=== PATIENT | female | born 1945 | race Caucasian/White ===

== ENCOUNTER 2018-07-15 08:55 | Outpatient (RCR) | payer MEDICARE, SELFPAY ==
[2017-04-30 15:53] VITALS: BMI 22.9
--- NOTE | 2018-07-15 10:15 | BH.SGPN.GN ---
Behaviors/Verbalizations/Mental Status: []Pt eye contact good, casually dressed, motor activity appropriate, speech rambling, mood euthymic, full affect, thoughts racing and circular, no evidence of delusions or hallucinations. Client Response/Progress/Benefit: []Client listened attentively to peers and contributed thoughts and ideas to discussion throughout. Client struggled with staying on topic at times and needed several redirections from therapist. Client reported change happens everyday and she tries to manage change by facing it head on. Client agreed with peers that change can be hard, but recognizes if doesn't face change nothing will get better. Client connected with the various emotions discussed that can impact change process. Client seemed to benefit from increased awareness of barriers that can get in the way of making a personal change and benefits of making change. Client's first day in IOP. Narrative Note: []
--- NOTE | 2018-07-15 11:18 | BH.SGPN.GN ---
Behaviors/Verbalizations/Mental Status: []Client alert and oriented, casually dressed and groomed. Eye contact good. Motor activity appropriate. Speech tangential, rambling. Affect full-laughing and smiling, mood euthymic. Loose associations, and often repeating herself. no signs of hallucinations or delusions. Client Response/Progress/Benefit: []Client responded somewhat well to session, providing some good ideas, but often off topic and interrupting others. Client participated in the activity and helped the group process challenges associated with making change. Client became frustrated with herself during the activity, but the group helped client challenge negative self-talk. Client shared it is possible to grow and learn from change. Client reported when she is struggling with change ?I just get up an do it anyway.? Client appeared confused by the stages of change and had a difficult time setting a goal for a change she would like to make this week. Client was able to identify being outside and doing yard work as a change that could improve her mental health. Client appeared to benefit from identifying a change that would improve her mental health. Client attempted to provide support to others, but at times she struggled with boundaries and used minimizing language. Client?s first day in IOP. IOP staff will continue to follow up with client to review group rules. Client to continue to prevent decompensation and reduce severity of symptoms.
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
--- NOTE | 2018-07-17 09:10 | BH.SGPN.GN ---
Behaviors/Verbalizations/Mental Status: [] Eye contact is good. Motor activity is appropriate. Appearance is disheveled. Speech is Appropriate. Mood is euthymic. Affect is full. Thoughts are linear however requires redirection to stay on topic. Often interrupts other patients. Limited social awareness. No evidence of psychosis. Reviewed daily check in sheet and no reports of suicidal ideations or intent. Client Response/Progress/Benefit: [] Pt was an active participant in group. Requires redirection to stay on topic. Inappropriate at times often getting up and asking for hugs from peers. Shared that she continues to have conflict with family specifically daughter which has impacted her relationship with great grandson. Limited motivation to repair relationship with daughter. Reports anxiety and depression however little insight or awareness of its impact. States that her anxiety is bad however then reports being Calm and at peace with not being able to see her grandson. Limited benefit from group except for social aspect. Some concerns about her cognition as she will often repeat stories and has difficulty remembering redirection. Will discuss with team and psychiatrist tomorrow regarding her appropriate for IOP level of care. Narrative Note: []
--- NOTE | 2018-07-17 10:11 | BH.SGPN.GN ---
Behaviors/Verbalizations/Mental Status: [Client alert, casually dressed, hygiene good. Eye contact fair to good. Motor activity restless - often fidgeting in chair or messing with items on the table. Speech is an appropriate rate and tone; however, often tangential. Affect congruent, mood euthymic, anxious. Thoughts linear, logical, no signs of hallucinations or delusions.] Client Response/Progress/Benefit: [Pt receptive to session, active participant and providing input throughout; however, often interrupting others or giving off-topic responses. At times pt remarks became disruptive to the group or detracted from group due to inappropriateness of content. Pt connected with discussion on communication and expressed ?if we don?t communicate emotions it build up and the we have to suffer the consequences?. Despite this insight, pt continued to provide remarks promoting aggressive communication and provided examples of times she felt she needed to resort to aggressive communication in order to get her point across. She was somewhat receptive of being gently challenged on this and would benefit from ongoing psychoeducation regarding appropriate communication skills. Pt made efforts to help the group discuss the different communication styles and did well to respond to continued redirection given her tendency to provide off topic remarks. Pt appeared to benefit from increasing awareness of different types of communication as well as from the supportive group environment. Minimal progress noted due to her inability to engage in session without becoming distracted or struggling to remain on topic. Given difficulties to appropriately engage in group or retain materials, pt does not appear appropriate for group tx setting and is recommended referral to alternative counseling that may more appropriately address her needs. ] Narrative Note: []
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
--- NOTE | 2018-07-18 10:20 | BH.SGPN.GN ---
Behaviors/Verbalizations/Mental Status: []Pt eye contact good, casually dressed, motor activity appropriate, speech normal rate and tone, rambling at times, mood euthymic, congruent affect, thought process tangential, no evidence of delusions or hallucinations. Client Response/Progress/Benefit: Client contributed many of her thoughts to group discussion, however her contributions were often not connected or were loosely related with the topic. 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 Client reported self-care can be helpful because makes her feel productive. Client engaged in activity, worked cooperatively with group members. Client seemed to benefit from being around others. Client progress could be hindered by client not appearing to understand the concepts being discussed in group. Client does not seem to be appropriate for [facility] level of care, will discuss client's treatment with treatment team. Narrative Note: []
--- NOTE | 2018-07-18 11:40 | BH.NA ---
Physical Data - Vital Signs Pulse Rate: 86 Respiratory Rate: 15 Blood Pressure: 137/72 - Height/Weight Height: 1.59 m Weight:: 59.874 kg Weight in Pounds: 132.0 lbs Current Medication Compliance - Medication Compliance Do you take your medication as prescribed?: Yes Do you need assistance with taking medication?: No Have you had side effects from medication?: No Nutritional History - Appetite Nutritional Instructions:: If client shows signs of a swallowing problem, weight change of 10 pounds or more in the last month, or is on a diabetic diet, the physician will review and request a dietitian consult, as appropriate. All unintentional weight loss will be referred to the physician for decision on need for dietitian consult. Describe your appetite:: Good Have you noticed a change in your eating habits lately?: No Functional Assessment - Sleep Pattern Describe any problems with sleeping: Client notes minor difficulty staying asleep related to environmental noise. - Activities Motor Activity:: Functional Sensory/Communication Assess - Hearing Problems Do you have any hearing problems?: Adequate - Communication Problems Do you have difficulty understanding what people are saying?: No Do you have trouble putting your thoughts into words or expressing what you want to say?: Yes Do people ever have trouble understanding what you say?: No What is your primary language?: [place] Learning Assessment - Learning Barriers Learning Barriers:: Ready to learn Medical Problems/History - Cardiac Conditions Cardiovascular: Hypertension, Hyperlipidemia - Pain Assessment Do you have acute or chronic pain?: No - Female Reproductive Do you think you may be ?: No Have you reached menopause?: Yes Do you have any history of breast disease?: No - Additional History Additional comments:: see PMHx in Summary Substance Abuse - Substance Abuse Please describe substance abuse in the last 30 days:: Denies ETOH, tobacco, and illicit substance use/abuse. Minimal caffiene intake. Mental Status Summary - Mental Status Significant Findings/Observations on Appearance and Mood:: Chapis is 72F who is cooperative with interview and engages easily in conversation. Normal activity, steady gait. She makes good eye contact. She has appropriate grooming and hygiene, casually dressed. Speech is clear and of normal rate and volume. Mild anxiety. Full affect. Client does exhibit both remote and recent memory deficits. Her knowledge and insight about her anxiety and depression are fair to poor. She is A&Ox4, but is easily distracted and difficult to redirect. Suicide Assessment - Suicidal Ideation Are you currently or have you been suicidal in the past?: No Suicidal Intentional Rating Scale (SIRS): No suicidal thoughts (past or present) Physician Notification: If Active suicidal thoughts/Will not contract for safety is checked, contact physician and document in the Physician Notification section below. Fall Risk Assessment - Age Age: 71 or older - Mental Status Mental Status: Willing & able to ask for assistance when needed - Physical Status Physical Status: No problems - Impairments Impairments: None - Elimination Elimination: Continent AND independent - Gait or Balance Gait or Balance: Walks independently - Hx of Falls History of falls in the past 6 months: No known history - Medications/Substances Psychotropics:: Antidepressants, Anxiolytics (e.g. benzodiazepines) Others:: Antihypertensives Medications/substances used within the past 24 hours or ordered to administer: 3 or more of the medications/substances listed above - Total Score Total Points:: 4 Physician Notification - Physician Notification Physician Notified: Bill Butler Method of Notification: Face to Face Comments: treatment planning discussion RN Summary of Impressions - Impressions Recommendations: Include psychiatric and medical issues, treatment planning recommendations, and discharge planning needs. Impressions: Psychiatric Issues: LEATHA, dependent personality Impression: General Medical Conditions: HTN, HLD - Level of Care How do the client's current symptoms and functional deficits support need for this level of care?: Client notes a recent decline in her mental health, mostly surrounding conflicts with two of her adult children. She notes that she has been having emotional dysregulation with labile moods for several months. Client verbalizes that she is often lonely and scared due to living alone. She notes that she has struggled with her mental illness for the last 50 years. IOP will provide her with social support and skill training to promote gains and prevent further decompensation.
--- NOTE | 2018-07-18 13:35 | HP.PCM_ITS ---
History and Physical Date of Admission: 07/15/18 Chief Complaint: The patient is a 72-year old female who is being admitted to the intensive outpatient mental health treatment program at [facility]. She has a long history of problems with anxiety and family turmoil and enmeshment. She also suffers from insomnia. She has a history of benzodiazepine dependence. History of Present Illness: The patient states that she has had problems with anxiety for over 50 years. She has always been a worrier and tends to worry about many different things. Lately, she has been highly worried about problematic family interactions, as well as loneliness. She has been a for 31 years and has few or no social supports. She has no interests or hobbies and is highly focused on spending lots of time with her great grandson. She is constantly wanting to spend time at her daughter's house for hours at a time to the point where her family has found her to be annoying and have told her to leave. She gets into big arguments over this issue with her daughter and granddaughter. This causes her to then feel rejected been more lonely. This makes her highly anxious. Her anxiety sometimes causes her to feel overwhelmed to the point of being panicky. She has a history of insomnia, currently treated with Seroquel nightly. The patient has a history of benzodiazepine dependence. She was on Ativan for many years. When her doctor decided to stop prescribing it, she went through withdrawals and required detoxification at the [facility] 10 years ago. Past Psychiatric History: No psychiatric admissions and no history of suicide attempts. She said that she was first treated for anxiety at age 21. More recently she has been treated by Dr. Barr for a number of years. Current Psychiatric Medications: Paxil 60 mg daily, Klonopin 1 mg twice daily, Seroquel 75 mg nightly Medical History: The patient has hypertension and hyperlipidemia treated with medications. Allergies: No known drug allergies Family Psychiatric History: She said that everybody on her father's side has had problems with anxiety. Personal/Social History: The patient's parents are . A sister of cancer some years ago. She has no other living siblings. She left school in the 11th grade after she became . 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 She has had little active engagement in life since then. She has been living off her 's pension since his 31 years ago. She lives alone. She is and . Her second of cancer at age 44. She has a son from her first marriage who lives out of state. She has estranged herself from her daugher and grandaughter after frequently getting conflict with them. She said I always fight with my daughter and she always says I am in the wrong. Se is able to drive and manage her self-care and finances appropriately. She shows no signs of cognitive decline. However, she is very emotionally immature. Substance abuse history: Patient denies any history of alcohol or drug problems. She developed a dependence on Ativan after being on it for 20years, and required detoxification 10 years ago. Review of Systems: Psychiatry: Some demoralization, but no clinical depression. She is highly anxious under certain circumstances with an underlying generalized anxiety as per HPI. She is not suicidal. There is no psychosis. She is cognitively intact. Constitutional: She is of average weight and her weight has been steady. Her energy level is good. Examination: The patient presents as a very talkative woman of average build who appears emotionally immature. She goes off on long tangents with a tendency to talk endlessly about family problems. She demonstrates poor social skills. Vital signs: Height 5 feet 3 inches, weight 130 pounds, respirations 17. Musculoskeletal: Some minor aches and pains. Her speech is fluent and spontaneous. Her language is intact. Her judgment and insight are poor. He is alert and oriented x3. Her affect is cordial and appropriate. Her recent and remote memory appear to be intact. She demonstrates fair attention span and concentration. She has normal thought processes and abstract reasoning. Her associations are intact. There are no hallucinations or delusions and she is not suicidal. She demonstrates normal age-appropriate fund of knowledge. Mental Status Examination: The patient presents as a very talkative woman of average build who appears emotionally immature. She demonstrates poor social skills. Her thoughts are logical and coherent, however she has a tendency to go off on tangents. There is no significant depression. She is not suicidal. There is no psychosis. She is cognitively intact. Diagnoses: [] [place] I: Generalized anxiety disorder, adjustment disorder with anxiety and depression, history of distress with family, history of benzodiazepine dependence [place] II: Dependent personality traits [place] III: Hypertension, hyperlipidemia Plan: I am continuing treatment with Paxil, Klonopin and Seroquel at the current doses. Patient will continue to have her medicines managed by Dr. Barr. The team will discuss her appropriateness for our program.
--- NOTE | 2018-07-18 14:23 | BH.DR.ITP ---
Initial Treatment Plan - Patient Information Visit Information: ADMISSION DATE: 07/15/18 EXPECTED LOS: 4-6 weeks Diagnoses:: generalized anxiety disorder; relationship distress with family; adjustment disorder - Problems/Symptoms Problem #1:: generalized anxiety Symptom:: tendency to worry excessively; feeling anxious Problem #2:: adjustment disorder Symptom:: lack of coping skills; inability to handle stress Problem #3:: relationship distress with family Symptom:: problems with healthy family dynamics; lacking emotioal intelligence
--- NOTE | 2018-07-22 08:45 | BH.COMM ---
Communication Note - Communication with Client Communication Note: After discussion with treatment team, psychiatrist, and pt's outpatient psychiatrist it was determined that pt is not benefiting for IOP level of care and will be discharged. Spoke with patient over the phone regarding discharge and outpatient recommendations (refer to discharge plan). Pt understood and was pleasant and cooperative. No distress stating It will give me more time to do my projects around the house. Denies any overwhelming depression, anxiety, or suicidal ideations. Smiling.
--- NOTE | 2018-07-22 09:15 | BH.DS ---
Discharge Summary - Demographics Date of Admission:: 07/15/18 Discharge Date: 07/22/18 Presenting Problems at Admission:: Client is a 72-year-old female with a history of panic and generalized anxiety disorder. Client was referred to [facility] by her outpatient psychiatrist Dr. Yeager due to client's report of worsening anxiety and loneliness over the past two weeks. At intake, client reported symptoms of constant anxiety and internal shaking. Client also reported being fearful of many things in life and worry about things other people don't. Client reported loneliness due to limited supports and her adult children being estranged from her. At intake client endorsed crying spells and passive thoughts of . Client denied any active suicidal ideation, plan, and intent. Discharge Diagnoses:: Generalized anxiety disorder F 41.1, adjustment disorder with anxiety and depression, Dependent personality traits, history of benzodiazepine dependence Reason for Discharge:: Client was discharged from [facility] due to not meeting criteria for [facility] level of care. Client endorses anxiety, but per her report, she is managing symptoms and they do not impact her functioning. [facility] treatment team met and concluded that client could benefit from ongoing outpatient counseling, social engagement, and psychiatry. [facility] director spoke with client's outpatient psychiatrist, Dr. Yeager, and he agreed with recommendations and plan. - Treatment Progress During Treatment & Response: Client?s response to [facility] was variable as client had good attendance and appeared to enjoy attending group. However, client demonstrated some inappropriate behaviors and boundaries while in group such as hugging, telling peers ?I love you,? and oversharing. Additionally, client presented as well functioning during group and often mentioned her ability to manage anxiety. Due to client's early discharge, therapist and client unable to accomplish treatment goals. Issues Still to be Addressed:: Client can continue to benefit from ongoing outpatient psychiatric services for medication monitoring. Client can also benefit from receiving outpatient counseling to further process grief and relationship issues with family. Lastly, client reported limited support, feelings of loneliness, and poor social awareness that has impacted relationships. Client was provided resources to increase social support and can continue to improve self-awareness. Discharge Recommendations/Instructions:: Client plans to follow up with her outpatient psychiatrist, Dr. Yeager, for ongoing medication monitoring. Client has an appointment next week. Client was provided resources for [facility] in [place] for individual counseling. Client was also given information for [facility] and the [facility] in [place] to increase social support. Discharge Handout: Complete Discharge Handout with client on aftercare options and continuity of care.
--- NOTE | 2018-07-22 09:16 | BH.MTP_ITS ---
Master Treatment Plan - Patient Information Program Physician:: Bill Butler Primary Therapist:: Marina Don - Psychiatric Diagnoses Psychiatric Diagnoses:: generalized anxiety disorder; relationship distress with family; adjustment disorder Diagnosis Code(s):: F 41.1 - Estimated LOS Estimated LOS (in weeks):: 6 Problem/Goal #1 - Problem/Goal #1 Stated Goal:: Client will reduce overall frequency, intensity, and duration of anxiety and panic so that daily functioning is not impaired. Description of Barriers: Client reports ongoing conflict and family issues that cause client distress and feelings of loneliness. Client shares having limited supports and spends most of her days cleaning. Client also continues to grieve the of her who 30 years ago. Client appears to have limited insight to distortions and struggles with social awareness. This is evidenced by her report of family interactions and was demonstrated in the IOP group setting. Functional Impact: Client is a 72-year-old female with a history of panic and generalized anxiety disorder. Client was referred to [facility] by her outpatient psychiatrist Dr. Yeager due to her report of worsening anxiety and loneliness over the past two weeks. Client states symptoms of constant anxiety and in ternal shaking. Client reports she is fearful of many things in life. Client reports loneliness and her adult children are estranged from her. Client shares she had a recent conflict with her daughter two weeks ago where she threw me out of her house. Client endorses crying spells and passive thoughts of . Client denies any active suicidal ideation, plan, and intent. Due to passive thoughts of and ongoing anxiety symptoms, client recommended IOP level of care. Goal Relevant Strengths/Supports: Client reports motivation to increase her ability to manage anxiety. Client appears to have knowledge of some coping skills and reports when she feels anxious she tries to implement these strategies. Client is established with Dr. Yeager for outpatient psychiatry. Client is independent with transportation, finances, and functioning at home. Client shared I even mow my own grass still. Client reports her great grandson as a motivator and positive force in her life. - Objectives Objective #1 Stated Objective: Client will identify 2-3 anxiety triggers and 2 coping skills to use when feeling anxious. Interventions: Therapist will assist client in exploring what triggers anxiety and teach client coping strategies to effectively manage anxiety symptoms. Therapist will educate client on the various ways anxiety impacts the body and help client utilize calming strategies to manage symptoms. Discharge Criteria: Client will have met this goal when can identify at least 2 triggers to anxiety and verbalize two healthy ways to cope with feelings of anxiety. Target Date: 08/26/18 Review Date: 08/14/18 Status: open Problem/Goal #2 - Problem/Goal #2 Stated Goal:: Client will reduce stress and loneliness by increasing coping and interpersonal effectiveness skills. Description of Barriers: Client reports ongoing conflict and family issues that cause client distress and feelings of loneliness. Client shares having limited supports and spends most of her days cleaning. Client also continues to grieve the of her who 30 years ago. Client appears to have limited insight to distortions and struggles with social awareness. This is evidenced by her report of family interactions and was demonstrated in the IOP group setting. Functional Impact: Client is a 72-year-old female with a history of panic and generalized anxiety disorder. Client was referred to [facility] by her outpatient psychiatrist Dr. Yeager due to her report of worsening anxiety and loneliness over the past two weeks. Client states symptoms of constant anxiety and internal shaking. Client reports she is fearful of many things in life. Client reports loneliness and her adult children are estranged from her. Client shares she had a recent conflict with her daughter two weeks ago where she threw me out of her house. Client endorses crying spells and passive thoughts of . Client denies any active suicidal ideation, plan, and intent. Due to passive thoughts of and ongoing anxiety symptoms, client recommended IOP level of care. Goal Relevant Strengths/Supports: Client reports motivation to increase her ability to manage anxiety. Client appears to have knowledge of some coping skills and reports when she feels anxious she tries to implement these strategies. Client is established with Dr. Yeager for outpatient psychiatry. Client is independent with transportation, finances, and functioning at home. Client shared I even mow my own grass still. Client reports her great grandson as a motivator and positive force in her life. - Objectives Objective #1 Stated Objective: Client will increase social activities and learn 2-3 interpersonal effectiveness and coping skills. Interventions: Therapist will teach client various calming coping skills to help client self-regulate when experiencing anxiety. Therapist will provide psychoeducation on anxiety and help client identify social activities she may be interested in starting. Through group and individual therapy, client will learn different interpersonal effectiveness strategies and be able to practice them in the moment. Therapist will encourage client to set weekly goals. Therapist will help client increase her emotional intelligence and self-awareness. Discharge Criteria: Client will have accomplished this goal when she can report increased engagement in social activities and can identify at least 2 coping or interpersonal effectiveness skills. Target Date: 08/26/18 Review Date: 08/14/18 Status: open
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
[2018-09-12 12:36] VITALS: BP 137/72; PULSE 86; RESP 15
== END 2018-08-05 23:59 ==
LOC: BHIOP 08:55
PROVIDERS: Family Provider Nurse Practitioner; PCP Nurse Practitioner; Referring Provider Psychiatry & Neurology Psychiatry; Visit Provider Psychiatry & Neurology Psychiatry
DX: F41.1 Generalized anxiety disorder (principal); F43.23 Adjustment disorder with mixed anxiety and depressed mood; F15.11 Other stimulant abuse, in remission; I10 Essential (primary) hypertension; E78.5 Hyperlipidemia, unspecified; F60.7 Dependent personality disorder; G47.00 Insomnia, unspecified; Z79.899 Other long term (current) drug therapy
CPT/HCPCS: H0035; 90832; 90834; 90853

== ENCOUNTER 2021-11-08 14:02 | Emergency (ER) | payer MEDICARE, SELFPAY ==
[2021-11-08 14:04] VITALS: BP 195/109; PULSE 94; RESP 16; TEMP 36.5; O2SAT 96; BMI 22.0
--- NOTE | 2021-11-08 14:30 | EKG12_ITS ---
Test Reason : Blood Pressure : / mmHG Vent. Rate : 088 BPM Atrial Rate : 088 BPM P-R Int : 134 ms QRS Dur : 074 ms QT Int : 352 ms P-R-T Axes : 013 005 040 degrees QTc Int : 425 ms Normal sinus rhythm Normal ECG Confirmed by DARIAN GIBBONS, MERT ([id number]), purchase request editor ANNY SEARS ([id number]) on 11/09/2021 1:22:27 PM Referred By: Confirmed By:MERT FARMER MD
[2021-11-08 14:54] LABS: Absolute Lymphocyte Count 1.62 X10^3/uL (0.83-4.51); Absolute Neutrophil Count 3.7 X10^3/uL (2.0-7.7); Basophil# 0.03 X10^3/uL; Basophil% 0.5 % (0-1); Eosinophil# 0.02 X10^3/uL; Eosinophils% 0.3 % (0-5); Hematocrit 44.5 % (37-47); Hemoglobin 15.9 g/dL (12.0-15.0); Lymphocyte # 1.62 X10^3/ul (0.83-4.51); Lymphocyte % 28.3 % (19-41); Mean Corp Hgb Conc 35.7 g/dL (32-36); Mean Corpuscular Hgb 32.3 pg (27.0-32.0); Mean Corpuscular Volume 90.3 fL (81-99); Mean Platelet Vol. 7.9 fl (6.2-12.0); Monocyte# 0.39 X10^3/uL; Monocyte% 6.8 % (0-10); NRBC Flagged by Analyzer 0 % (0-5); Neutrophil # 3.66 X10^3/uL (2.7-7.7); Neutrophil % 63.9 % (47-70); Platelet Count 296 K/mm3 (150-450); RBC Distribution Width CV 11.9 % (11.6-14.6); RBC Distribution Width SD 39.5 fl (35.1-43.9); Red Blood Count 4.93 M/mm3 (4.2-5.4); White Blood Count 5.7 K/mm3 (4.4-11.0)
--- NOTE | 2021-11-08 15:06 | EDS_ITS ---
HPI History of Present Illness Chief Complaint: Anxiety Narrative Narrative: Patient has a history of severe anxiety, she is being treated by psychiatry however she has been much worse over the past week she has not bathed or done a lot of her ADLs. She is here with her daughter, her daughter takes care of the patient however her she can no longer care for the patient. Patient has significant pain throughout her whole body which is also chronic PFSH PFSH Home Medications clonazepam 1 mg tablet 1 mg PO DAILY 04/30/17 [History Last Taken Unknown] quetiapine 50 mg tablet (Seroquel) 75 mg PO QHS 04/30/17 [History Last Taken Unknown] atorvastatin 20 mg tablet 20 mg PO DAILY 11/08/21 [History Last Taken Unknown] escitalopram oxalate 20 mg tablet 20 mg PO QHS 11/08/21 [History Last Taken U nknown] escitalopram oxalate 5 mg tablet 5 mg PO QHS 11/08/21 [History Last Taken Unknown] Allergy/AdvReac Type Severity Reaction Status Date / Time No Known Allergies Allergy Verified 11/08/21 14:11 Social History Smoking Status: Never smoker ROS ROS ED ROS Narrative Past medical history: Reviewed Medications: Reviewed Social history: Noncontributory Review of systems: All systems negative except as indicated General: No fever Eyes: No visual changes ENT: No upper airway congestion, normal voice Neck: No neck pain Cardiovascular: No chest pain Respiratory: No shortness of breath or cough Gastrointestinal: No abdominal pain, nausea vomiting or diarrhea Genitourinary: No dysuria Musculoskeletal: Denies myalgias no difficulty with ambulation Skin: No rash Neurological: No memory loss, confusion or any focal weakness Psych: Anxiety as in HPI Hematologic: No easy bleeding or easy bruising EXAM Physical Exam Narrative Exam Narrative: Physical exam General: She appears quite anxious Head: Normocephalic, Atraumatic Eyes: Conjunctiva not pale ENT: Moist mucous membranes Neck: Supple, Nontender, No lymphadenopathy Cardiovascular: Regular rate, Regular rhythm Respiratory: No distress, CTA bilaterally Abdomen: Soft, Nontender, Nondistended Back: Nontender, Normal Inspection. Negative for: CVA tenderness Extremities: Nontender, No edema Skin: Normal color, No rash Neurological: Alert, Normal Strength, Normal Sensation Psychological: Severely anxious, she has no delusions hallucinations, she has no psychosis Const Vital Signs: 11/08/21 14:04 Temperature 97.7 F L Temperature Source Oral Pulse Rate 94 Respiratory Rate 16 Blood Pressure 195/109 H Blood Pressure Mean 137 Pulse Ox 96 Oxygen Delivery Method Room Air MDM MDM MDM Narrative Medical decision making narrative: Patient will be medically cleared. I have social work involved, I do believe she would likely benefit from a [facility] psych admission. I will have her assessed for this. Otherwise I will sign her out to the oncoming ED physician Lab Data Labs: Laboratory Results - last 24 hr 11/08/21 11/08/21 14:45 14:45 WBC 5.7 RBC 4.93 Hgb 15.9 H Hct 44.5 MCV 90.3 MCH 32.3 H MCHC 35.7 RDW Std Deviation 39.5 RDW Coeff of Niels 11.9 Plt Count 296 MPV 7.9 Immature Gran % (Auto) 0.200 Neut % (Auto) 63.9 Lymph % (Auto) 28.3 [place] % (Auto) 6.8 Eos % (Auto) 0.3 Baso % (Auto) 0.5 Absolute Neuts (auto) 3.7 Absolute Lymphs (auto) 1.62 Nucleated RBC % 0 Sodium 136 Potassium 4.2 Chloride 104 Carbon Dioxide 27.0 Anion Gap 5 BUN 7 Creatinine 0.93 Estim Creat Clear Calc 44.44 Est GFR (MDRD) Af Amer 75 Est GFR (MDRD) Non-Af 62 BUN/Creatinine Ratio 7.5 L Glucose 107 H Calcium 9.7 Discharge Plan Triage Chief Complaint: Anxiety ED Provider: Henrique Thomas Dx/Rx/DC Orders Clinical Impression: Anxiety, Declining functional status Prescriptions: No Action clonazepam 1 MG tablet 1 mg PO DAILY quetiapine [Seroquel] 50 MG tablet 75 mg PO QHS atorvastatin 20 mg tablet 20 mg PO DAILY Label Comments: TAKE 1 TABLET BY MOUTH DAILY escitalopram oxalate 20 mg tablet 20 mg PO QHS escitalopram oxalate 5 mg tablet 5 mg PO QHS Primary Care Provider: Selene King Referrals: Selene King MD [Primary Care Provider] -
[2021-11-08 15:11] LABS: Anion Gap 5 (5-15); BUN 7 mg/dL (7-18); BUN/Creat Ratio 7.5 RATIO (10-20); Calcium,Total 9.7 mg/dL (8.5-10.1); Chloride 104 mmol/L (98-107); Creatinine, Serum 0.93 mg/dL (0.55-1.02); EST Glomerular Filtration Rate 62 mL/min (>60); Est Glom Filt Rate - Afr Amer 75 mL/min (>60); Estimated Creatinine Clearance 44.44 ml/min; Glucose 107 mg/dL (74-106); Potassium 4.2 mmol/L (3.5-5.1); Sodium Level 136 mmol/L (136-145)
[2021-11-08] MEDS: Ziprasidone HCl 20 MG Capsule PO (15:19)
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
[2021-11-08 15:53] LABS: Alcohol, Blood (Medical)-Serum < 3.0 mg/dL
[2021-11-08 15:59] LABS: Amphetamine Urine VISTA NEGATIVE (<1000 ng/mL); Barbiturate Urine VISTA NEGATIVE (< 200 ng/mL); Benzodiazepine Urine VISTA NEGATIVE (< 200 ng/mL); Cocaine Urine VISTA NEGATIVE (< 300 ng/mL); Ecstacy Urine VISTA NEGATIVE (< 500 ng/mL); Methadone Urine VISTA NEGATIVE (< 300 ng/mL); PCP Urine VISTA NEGATIVE (< 25 ng/mL); THC Urine VISTA NEGATIVE (< 50 ng/mL); Vista UDS pH Range 7
[2021-11-08] MEDS: Acetaminophen 325 MG Tablet 650 MG PO (17:16)
[2021-11-08 17:17] VITALS: BP 148/81; PULSE 78; RESP 16; O2SAT 99
--- NOTE | 2021-11-08 18:17 | ED.RN ---
PER [facility]DO WITH [facility]IS [facility]; FAXED COVID RESULTS TO THEM. FAX WAS CONFIRMED TO HAVE WENT THRU
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
[2021-11-08 19:00] VITALS: RESP 14
[2021-11-08] MEDS: Escitalopram Oxalate 20 MG Tablet PO (19:53)
[2021-11-08] MEDS: QUEtiapine 25 MG Tablet 75 MG PO (19:53)
[2021-11-08] MEDS: Escitalopram Oxalate 10 MG Tablet 5 MG PO (19:54)
--- NOTE | 2021-11-08 22:22 | NURSING ---
Referred to Ludivina Arango
[2021-11-08 23:19] VITALS: BP 137/66; PULSE 81; RESP 16; O2SAT 97
[2021-11-09] VITALS (10 sets, daily range): BP systolic 135–180; BP diastolic 77–99; PULSE 66–99; RESP 14–18; TEMP 36.3; O2SAT 96–100
--- NOTE | 2021-11-09 09:11 | NURSING ---
Spoke with Nilsa from [facility], pt has been accepted under Dr. Bustamante. [place] set up transportation with [facility] for 02/16:30
[2021-11-09] MEDS: Acetaminophen 500 MG Tablet 1000 MG PO (10:06)
[2021-11-09] MEDS: Atorvastatin Calcium 20 MG Tablet PO (10:06)
[2021-11-09] MEDS: clonazePAM 1 MG Tablet PO (10:09)
--- NOTE | 2021-11-09 10:10 | ED.RN ---
Clonazepam 1mg PO verified with Maribel MCKINNEY.
--- NOTE | 2021-11-09 11:42 | NURSING ---
spoke with Vasquez from [facility], transport crew is running behind. [place] is 12:45
--- NOTE | 2021-11-09 13:03 | NURSING ---
spoke with Juan Carlos hernandez [place], additional 25minutes at [facility]
== END 2021-11-09 13:36 ==
PROVIDERS: Emergency Provider Emergency Medicine; PCP Internal Medicine; Visit Provider Emergency Medicine
DX: F41.9 Anxiety disorder, unspecified (principal); R45.851 Suicidal ideations; R53.83 Other fatigue
CPT/HCPCS: 80048; 80307; 82077; 85025; 87811; 93005; 99285; A4216

== ENCOUNTER 2021-11-30 16:41 | Emergency (ER) | payer MEDICARE, SELFPAY ==
[2021-11-30 16:45] VITALS: BP 153/84; PULSE 107; RESP 18; TEMP 36.2; O2SAT 92; BMI 20.4
--- NOTE | 2021-11-30 17:43 | EX.ED.VIS.PS ---
HPI HPI - Psych History of Present Illness Chief Complaint: Mental Health Informant: patient and family Narrative Narrative: Sent over from [place] for evaluation. Daughter is currently present. Patient discharged from [facility] 6 days ago for nearly 2-week stay. She was there for anxiety and suicidal ideations. She started on anxiety medicine she cannot recall the name. Prior to that was living at home with daughter. Daughter was here last time, decision was to go to [facility] from discharge. Patient had a asymptomatic COVID +2 days ago from facility check. Daughter has been checking on her daily stepper yesterday she did have some mild anxiety, she skipped yesterday to avoid anxiety. Today patient was asking for her daughter reported 1 to give her her ring along with pictures. She is happy her daughter received it. Daughter was content apparently patient made a comment of wanting to kill herself. Patient states she must have made that comment. She denies any current suicidal ideations. Per daughter currently she is calm she is not nearly as anxious she was when she was seen initially. Denies any current symptoms. Denies suicidal homicidal ideations. PFSH PFSH Home Medications atorvastatin 20 mg tablet 20 mg PO DAILY 11/08/21 [History Last Taken Unknown] aspirin 81 mg tablet 81 mg PO DAILY 11/30/21 [History Last Taken Unknown] buspirone 15 mg tablet 15 mg PO BID 11/30/21 [History Last Taken Unknown] clonidine HCl 0.1 mg tablet 0.1 mg PO BID 11/30/21 [History Last Taken Unknown] donepezil 10 mg tablet 10 mg PO QHS 11/30/21 [History Last Taken Unknown] hydroxyzine HCl 50 mg tablet 50 mg PO TID PRN Anxiety 11/30/21 [History Last Taken Unknown] lisinopril 10 mg tablet 10 mg PO DAILY 11/30/21 [History Last Taken Unknown] melatonin 10 mg capsule 9 mg PO QHS 11/30/21 [History Last Taken Unknown] memantine 5 mg tablet 5 mg PO QPM 11/30/21 [History Last Taken Unknown] mirtazapine 15 mg tablet 15 mg PO QHS 11/30/21 [History Last Taken Unknown] sertraline 150 mg capsule 150 mg PO DAILY 11/30/21 [History Last Taken Unknown] Allergy/AdvReac Type Severity Reaction Status Date / Time No Known Allergies Allergy Verified 11/30/21 16:51 Social History Smoking Status: Never smoker ROS ROS ED Constitutional Constitutional ED: Denies chills, fever(s) or sweats Eyes Eyes: Denies change in vision ENT ENT ED: Denies dysphagia or sore throat Cardiovascular Cardiovascular: Denies chest pain, leg edema, palpitations or racing heartbeat Respiratory/Chest Respiratory/Chest: Denies cough, dyspnea or dyspnea on exertion Gastrointestinal Gastrointestinal: Denies abdominal pain, diarrhea, nausea or vomiting Genitourinary Genitourinary ED: Denies dysuria, hematuria or urinary frequency Musculoskeletal Musculoskeletal: Denies back pain, extremity pain or neck pain Integumentary Denies rash or wounds Neurologic Neurologic: Denies headache(s), paresthesias or weakness Psychiatric Psychiatric: Reports anxiety EXAM Physical Exam Const Vital Signs: 11/30/21 16:45 11/30/21 19:11 11/30/21 22:42 Temperature 97.1 F L Temperature Source Temporal Pulse Rate 107 H 80 Respiratory Rate 18 16 16 Blood Pressure 153/84 H Blood Pressure Mean 107 Pulse Ox 92 96 Oxygen Delivery Method Room Air Positive well nourished and well developed Constitutional Narrative: Calm cooperative exam. General Appearance ED: well developed and NAD HEENT Reports moist mucous membranes normocephalic and atraumatic Eyes PERRL, EOMs intact bilaterally and conjunctivae normal General Eye ED: Yes normal appearance of both eyes Neck no lymphadenopathy and supple General: Negative for tenderness Chest Wall Chest: Negative for tenderness Resp normal respiratory effort and normal air movement Effort and Inspection: symmetric chest movement; Negative for respiratory distress Cardio regular rate, regular rhythm and no murmurs Peripheral Pulses: pulses 2+ throughout GI normal to inspection, nondistended, normoactive bowel sounds and non-tender Palpation: Negative for guarding or rebound tenderness present Back/Spine no CVA tenderness and no thoracic nor lumbar tenderness Extremity normal to inspection General Extremety ED: Negative for edema or tenderness General Extremity: Negative for edema Neuro oriented x3 and no sensory deficits noted Sensorium / Orientation: awake and alert Psych cooperative, denies hallucinations, denies homicidal ideation and denies suicidal ideation Skin no rashes or lesions noted and no wounds MDM MDM MDM Narrative Medical decision making narrative: Patient cooperative in the ED she denies any suicidal ideations. From discussion with daughter and patient,. She just wanted her daughter there therefore made the comment she does not recall making this comment. She has history of dementia however is currently alert and oriented x3. She is on medicines at the facility. I did have case management evaluate the patient agrees that there is no threat. During my evaluation, increasing dementia with agitation. Ativan was given. She was cleared to go back to the facility. She will be transported back. Discharge Plan Triage Chief Complaint: Mental Health ED Provider: Guy Mancera Dx/Rx/DC Orders Clinical Impression: Anxiety, History of dementia Instructions: Anxiety Disorders Tx Prescriptions: No Action atorvastatin 20 mg tablet 20 mg PO DAILY Label Comments: TAKE 1 TABLET BY MOUTH DAILY clonidine HCl 0.1 mg Tablet 0.1 mg PO BID donepezil 10 mg Tablet 10 mg PO QHS hydroxyzine HCl 50 mg Tablet 50 mg PO TID PRN (Reason: Anxiety) lisinopril 10 mg Tablet 10 mg PO DAILY aspirin 81 mg Tablet 81 mg PO DAILY mirtazapine 15 mg Tablet 15 mg PO QHS buspirone 15 mg Tablet 15 mg PO BID memantine 5 mg Tablet 5 mg PO QPM melatonin 10 mg Capsule 9 mg PO QHS sertraline 150 mg Capsule 150 mg PO DAILY Primary Care Provider: Selene King Referrals: Selene King MD [Primary Care Provider] - Activity Restrictions/Additional Instructions: You are cleared from case management. Continue your medications. Follow-up with Dr. Yeager as an outpatient. Disposition Disposition: Snf Facility Discharge Location: [facility] Discharge Date/Time: 11/30/21 23:23
[2021-11-30 19:11] VITALS: RESP 16
[2021-11-30] MEDS: LORazepam 0.5 MG Tablet PO (21:32)
--- NOTE | 2021-11-30 21:58 | CM.ED ---
Social Work Note MD Mancera spoke to this worker. Pt was at [facility] and made comment about wanting to kill herself. Pt wanted to get her daughter to the facility today. Pt has outpatient follow up with De. Yeager for psych. Kaplan states pt with history of Anxiety and that can return to [facility]. Pt with history of being at [facility] and was there for two weeks. Pt with history of Dementia. SW in to speak with pt. Pt's daughter Aleena present in room. SW attempted to speak with pt. Pt repeatedly stating that she needs a shot, muscle relaxer, and that she is panicky and tired. SW asked pt if she stated she wanted to kill herself today and pt states I did? SW informed pt a couple times that she said she wanted to kill herself today and each time pt states I did? Pt unable to engage in conversation with this worker. SW spoke with Aleena. Briseida states that pt has been at [facility] since Saturday and before that pt was at [facility]. Aleena states that she is not sure how pt was at at [facility] as she did not talk to them that much. Aleena states that she called them a couple times but they only called her when she was told pt was being discharged. Aleena states pt has been at [facility] since Saturday and was doing ok up until today. Aleena states that she was seeing pt everyday at around 4:30pm but today she did not see pt. Aleena states pt posada COVID and Aleena's has heart problems so she was trying to distant herself. Aleena states that at around 4:30pm is when pt stated that she wanted to kill herself and stated that her medications were not working. Aleena states that pt has history of stating she wants to kill herself and that pt does that to get Aleena's attention. Aleena states that she Comes running every time before. Aleena states that pt has no history of suicidal attempts and no history of suicide plans. Aleena states pt has no history of homicidal thoughts either. Aleena states that she has no serious concerns about pt harming self. Aleena states that she thinks it is attention seeking. Aleena states that pt does have history of dementia and states she has only had dementia diagnosis for about a year. Aleena states that pt was calm earlier and was able to sleep and she has seen pt worse than pt's current presentation. Aleena states that before pt went to [facility], pt was living with her and her . Aleena states that pt's Anxiety made it hard for pt to complete ADLS and pt wouldn't take baths, wouldn't eat, wouldn't drink. Aleena states that she thinks pt's current presentation is a combination of Anxiety, Dementia, and Attention seeking behaviors. Aleena states that she is ok with pt returning to [place]. Pt throughout entire conversation was very anxious, restless, antsy, and was moving around the bed the entire conversation. Pt kept repeating I need a shot, can you give me a shot, can you give me a muscle relaxer, I missed [place]. SW attempted to discuss with pt her comment of missing heaven and pt states she wants to go peacefully. SW asked pt if she wanted to harmself to get to [facility] or just go when it's her time and pt states again I want to go peacefully. SW asked pt if she went back to [facility] [place] if pt could be safe and at one time pt would say no and then another time say yes. When SW asked pt if she wanted to go back to [place], pt stated no, SW asked pt where she wanted to go and pt states [facility]. Pt states Can't do this anymore, the Anxiety. ROSETTA informed pt that she will likely return to [place] and pt stated ok and then continued to ask for shots. Pt would then state that Aleena is mad and her is mad at her. Pt also kept repeating that she is so tired and panicky. Pt asked why she was so panicky. ROSETTA spoke with pt about how it could be a combination of things including being away from [place], being in the ED for long hours, pt could've missed some medications. Aleena states that it is past pt's usually bed time and that pt has likely missed some medications. ROSETTA informed pt and Aleena that this worker will discuss with MD and keep them updated. Briseida states understanding. Pt visable anxious during assessment. Pt was unable to sit still during assessment and unable to engaged in conversation with this worker. Pt moving constantly around in her bed during assessment and got on her knees at one point. Pt able to state that she was panicky and tired during assessment and that she wanted a shot/muscle relaxer. ROSETTA placed a call to Shayy THORPE and discussed case. It appears pt was triggered by her daughter not coming to see her today at [facility]. Pt was doing ok up until today when her daughter did not visit. Daughter reported that she usually see's pt at around 4:30pm everyday and she did not see pt today and that is around the time pt started making comments that she wanted to kill herself (4:30pm). Pt visible anxious but with medications the hope is that pt will become calm and to return to [place]. If symptoms persist while pt is at [facility] then pt may need to be reevaluated. Plan is to get pt medicated and then return to [place]. ROSETTA unable to complete Safety Plan with pt at this time due to pt's current presentation and inability to engaged in conversation appropriately. ROSETTA updated pct and MD Mancera. All agree with plan. SW back in to speak with Aleena and pt. Pt currently getting medications. ROSETTA updated Aleena that pt will get medicated and then return to [place]. Aleena states understanding, agreeable to plan. Aleena started crying. ROSETTA offered support to Aleena and encouraged Aleena to reach out to people for support if she needs it. ROSETTA spoke with Aleena about Alzheimer's [employer] and how they can help with Dementia. ROSETTA spoke with Aleena about how hard it must be for her to see her mother like this. Aleena confirms. ROSETTA offered much support to Aleena and did provide Aleena with Alzheimer's [employer] information. ROSETTA also encouraged Aleena to look up additional information if she chooses to do so. Aleena states understanding, thanked this worker. Plan: Pt to receive medication and then return to [place]. Karmen Sam NIGHT NURSE, UNHAIRING INSPECTOR
[2021-11-30 22:42] VITALS: PULSE 80; RESP 16; O2SAT 96
== END 2021-11-30 23:23 | disposition skilled nursing facility (03) ==
PROVIDERS: Emergency Provider Emergency Medicine; PCP Internal Medicine; Visit Provider Emergency Medicine
DX: F41.9 Anxiety disorder, unspecified (principal); F03.90 Unspecified dementia, unspecified severity, without behavioral disturbance, psychotic disturbance, mood disturbance, and anxiety
CPT/HCPCS: 99284

== ENCOUNTER 2022-01-15 06:00 | Emergency (ER) | payer MEDICARE, SELFPAY ==
[2022-01-15 06:01] VITALS: BP 110/91; PULSE 89; RESP 18; TEMP 36.5; O2SAT 99; BMI 18.4
--- NOTE | 2022-01-15 06:14 | ED.VIS.GI ---
HPI <Dr. Yoselyn Teixeira DO - Last Filed: 01/15/22 07:22> HPI - GI History of Present Illness Chief Complaint: Constipation Informant: patient and SNF Limited: dementia Narrative Narrative: Patient is a 76-year-old female with history of Alzheimer's dementia, hypertension, anxiety and hyperlipidemia presenting with constipation. [facility] patient has not had a significant bowel movement in 1 month. They have attempted oral medication such as MiraLAX with no results. Apparently she is been having what sounds like encopresis with small amounts of liquid stool but no significant bowel movements. She was sent to the ER for further evaluation. Patient is complaining of lower abdominal pressure and discomfort. She denies any history of any abdominal surgeries. I do not see any abdominal scars. She wears 1 to 2 L of oxygen at baseline. She is in a memory care unit. No other complaints at this time. Patient is currently on antibiotics for E. coli UTI per nursing report. [facility] <Dr. Yoselyn Teixeira DO - Last Filed: 01/15/22 07:22> [facility] Medical History Anxiety Dementia HTN (hypertension) Insomnia Schizophrenia Home Medications atorvastatin 20 mg tablet 20 mg PO DAILY 11/08/21 [History Last Taken Unknown] aspirin 81 mg tablet 81 mg PO DAILY 11/30/21 [History Last Taken Unknown] buspirone 15 mg tablet 30 mg PO BID 11/30/21 [History Last Taken Unknown] clonidine HCl 0.1 mg tablet 0.1 mg PO BID 11/30/21 [History Last Taken Unknown] donepezil 10 mg tablet 10 mg PO QHS 11/30/21 [History Last Taken Unknown] hydroxyzine HCl 50 mg tablet 50 mg PO TID PRN Anxiety 11/30/21 [History Last Taken Unknown] lisinopril 10 mg tablet 10 mg PO DAILY 11/30/21 [History Last Taken Unknown] melatonin 10 mg capsule 9 mg PO QHS 11/30/21 [History Last Taken Unknown] memantine 5 mg tablet 5 mg PO QPM 11/30/21 [History Last Taken Unknown] mirtazapine 15 mg tablet 15 mg PO QHS 11/30/21 [History Last Taken Unknown] sertraline 150 mg capsule 150 mg PO DAILY 11/30/21 [History Last Taken Unknown] acetaminophen 325 mg tablet 325 mg PO Q6H PRN Pain 01/15/22 [History Last Taken Unknown] quetiapine 25 mg tablet (Seroquel) 25 mg PO BID 01/15/22 [History Last Taken Unknown] Allergy/AdvReac Type Severity Reaction Status Date / Time No Known Allergies Allergy Verified 01/15/22 06:09 Social History Smoking Status: Never smoker ROS <Dr. Yoselyn Teixeira DO - Last Filed: 01/15/22 07:22> ROS ED Constitutional Constitutional ED: Denies chills or fever(s) ENT ENT ED: Denies sore throat Cardiovascular Cardiovascular: Denies chest pain Respiratory/Chest Respiratory/Chest: Denies cough Gastrointestinal Gastrointestinal: Reports abdominal pain and constipation; Denies nausea or vomiting Genitourinary Genitourinary ED: Denies dysuria or hematuria Musculoskeletal Musculoskeletal: Denies arthralgias or myalgias Integumentary Denies rash Neurologic Neurologic: Denies headache(s) Psychiatric Psychiatric: Reports anxiety Hematologic/Lymphatic Hematologic/Lymphatic: Denies easy bleeding or easy bruising EXAM <Dr. Yoselyn Teixeira, - Last Filed: 01/15/22 07:22> Physical Exam Const Vital Signs: 01/15/22 06:01 Temperature 97.7 F L Temperature Source Temporal Pulse Rate 89 Respiratory Rate 18 Blood Pressure 110/91 H Blood Pressure Mean 97 Pulse Ox 99 Oxygen Delivery Method Nasal Cannula Oxygen Flow Rate (L/min) 2 Positive well nourished and well developed General Appearance ED: well developed and NAD HEENT Reports dry mucous membranes Mouth ED: Yes dry mucous membranes Mouth: dry mucous membranes Eyes PERRL and EOMs intact bilaterally Neck supple Resp normal respiratory effort and clear to auscultation bilaterally Cardio regular rate, regular rhythm and no murmurs GI non-distended and no masses GI Narrative: Mild suprapubic tenderness to palpation Patient is fecal impaction on rectal exam. There are multiple large hard balls of stool that are removed. Patient tolerated reasonably well. Auscultation: normoactive bowel sounds Back/Spine no CVA tenderness Neuro moves all extremities and no sensory deficits noted Sensorium / Orientation: alert, oriented to person and oriented to place Psych mental status grossly normal Mood & Affect: anxious Skin no wounds Lesions: no lesions <Eliot Serna MD - Last Filed: 01/15/22 09:06> Physical Exam Const Vital Signs: 01/15/22 06:01 Temperature 97.7 F L Temperature Source Temporal Pulse Rate 89 Respiratory Rate 18 Blood Pressure 110/91 H Blood Pressure Mean 97 Pulse Ox 99 Oxygen Delivery Method Nasal Cannula Oxygen Flow Rate (L/min) 2 MDM <Dr. Yoselyn Teixeira DO - Last Filed: 01/15/22 07:22> [facility] Narrative Medical decision making narrative: Patient evaluate for constipation. She has a fecal impaction on exam which is digitally disimpacted. Baseline labs are obtained. We will give a soapsuds enema. Anticipate if no significant laboratory normalities can be discharged back to nursing facility. Patient does not hold in the soapsuds enema well at all. She does have a mild leukocytosis of 14.7. We will obtain a CT of the abdomen pelvis with contrast to rule out any acute intra-abdominal pathology. She is currently on antibiotics for UTI so the leukocytosis could be associated with her UTI. She does not meet any other sirs criteria and has normal vital signs. Patient be signed out to oncoming physician pending CT results. Anticipate if no acute abnormalities can be discharged back to nursing facility for further bowel care. Lab Data Labs: Laboratory Results - last 24 hr 01/15/22 01/15/22 06:05 06:05 WBC 14.7 H RBC 4.14 L Hgb 12.7 Hct 38.1 MCV 92.0 MCH 30.7 MCHC 33.3 RDW Std Deviation 41.1 RDW Coeff of Niels 12.3 Plt Count 430 MPV 7.9 Immature Gran % (Auto) 0.500 Neut % (Auto) 85.9 H Lymph % (Auto) 7.3 L Wilkin % (Auto) 5.8 Eos % (Auto) 0.1 Baso % (Auto) 0.4 Absolute Neuts (auto) 12.6 H Absolute Lymphs (auto) 1.07 Nucleated RBC % 0 Sodium 141 Potassium 4.4 Chloride 102 Carbon Dioxide 28.0 Anion Gap 11 BUN 16 Creatinine 0.80 Estim Creat Clear Calc 45.28 Est GFR (MDRD) Af Amer 89 Est GFR (MDRD) Non-Af 74 BUN/Creatinine Ratio 20.0 Glucose 119 H Calcium 9.7 Total Bilirubin 0.50 AST 20 ALT 14 Alkaline Phosphatase 90 Total Protein 7.4 Albumin 3.2 Globulin 4.2 Albumin/Globulin Ratio 0.8 L Radiography Diagnostic Testing: Clinical Impression(s) from Imaging Studies Abdomen/Pelvis CT 01/15/22 06:44 IMPRESSION: Rectal wall thickening with perirectal inflammation. Moderate stool in the colon. Possible cystitis with mild bladder wall thickening. Small right hepatic and left renal cystic hypodensities, too small to characterize. Electronically Signed: Allison Christie MD at 8:35 EDT , <Eliot Serna MD - Last Filed: 01/15/22 09:06> MDM MDM Narrative Medical decision making narrative: Patient evaluate for constipation. She has a fecal impaction on exam which is digitally disimpacted. Baseline labs are obtained. We will give a soapsuds enema. Anticipate if no significant laboratory normalities can be discharged back to nursing facility. Patient does not hold in the soapsuds enema well at all. She does have a mild leukocytosis of 14.7. We will obtain a CT of the abdomen pelvis with contrast to rule out any acute intra-abdominal pathology. She is currently on antibiotics for UTI so the leukocytosis could be associated with her UTI. She does not meet any other sirs criteria and has normal vital signs. Patient be signed out to oncoming physician pending CT results. Anticipate if no acute abnormalities can be discharged back to nursing facility for further bowel care. Dr. Serna: Patient endorsed to me by Dr. Teixeira to check the CT scan on this patient that had a fecal impaction. CT returns with a rectal wall thickening with perirectal inflammation and moderate stool in the colon. I do feel that his from her fecal retention. I do not feel antibiotics are indicated. Additionally, she is listed as a DNR/CC. I feel she can be discharged back to the [facility] unit in stable condition. Lab Data Attestation: I reviewed the patient's lab results. Labs: Laboratory Results - last 24 hr 01/15/22 01/15/22 06:05 06:05 WBC 14.7 H RBC 4.14 L Hgb 12.7 Hct 38.1 MCV 92.0 MCH 30.7 MCHC 33.3 RDW Std Deviation 41.1 RDW Coeff of Niels 12.3 Plt Count 430 MPV 7.9 Immature Gran % (Auto) 0.500 Neut % (Auto) 85.9 H Lymph % (Auto) 7.3 L Wilkin % (Auto) 5.8 Eos % (Auto) 0.1 Baso % (Auto) 0.4 Absolute Neuts (auto) 12.6 H Absolute Lymphs (auto) 1.07 Nucleated RBC % 0 Sodium 141 Potassium 4.4 Chloride 102 Carbon Dioxide 28.0 Anion Gap 11 BUN 16 Creatinine 0.80 Estim Creat Clear Calc 45.28 Est GFR (MDRD) Af Amer 89 Est GFR (MDRD) Non-Af 74 BUN/Creatinine Ratio 20.0 Glucose 119 H Calcium 9.7 Total Bilirubin 0.50 AST 20 ALT 14 Alkaline Phosphatase 90 Total Protein 7.4 Albumin 3.2 Globulin 4.2 Albumin/Globulin Ratio 0.8 L Radiography Diagnostic Testing: Clinical Impression(s) from Imaging Studies Abdomen/Pelvis CT 01/15/22 06:44 IMPRESSION: Rectal wall thickening with perirectal inflammation. Moderate stool in the colon. Possible cystitis with mild bladder wall thickening. Small right hepatic and left renal cystic hypodensities, too small to characterize. Electronically Signed: Allison Christie MD at 8:35 EDT Reading Location ID and State: [facility] / [place] Tel , Service support , Discharge Plan Triage Chief Complaint: Constipation Other Complaint: Abd Pain ED Provider: Yoselyn Teixeira Dx/Rx/DC Orders Clinical Impression: Constipation, Fecal impaction in rectum, Leukocytosis Instructions: ED Constipation (Adult) Prescriptions: No Action atorvastatin 20 mg tablet 20 mg PO DAILY Label Comments: TAKE 1 TABLET BY MOUTH DAILY clonidine HCl 0.1 mg Tablet 0.1 mg PO BID donepezil 10 mg Tablet 10 mg PO QHS hydroxyzine HCl 50 mg Tablet 50 mg PO TID PRN (Reason: Anxiety) lisinopril 10 mg Tablet 10 mg PO DAILY aspirin 81 mg Tablet 81 mg PO DAILY mirtazapine 15 mg Tablet 15 mg PO QHS buspirone 15 mg Tablet 30 mg PO BID memantine 5 mg Tablet 5 mg PO QPM melatonin 10 mg Capsule 9 mg PO QHS sertraline 150 mg Capsule 150 mg PO DAILY quetiapine [Seroquel] 25 mg Tablet 25 mg PO BID acetaminophen 325 mg Tablet 325 mg PO Q6H PRN (Reason: Pain) Primary Care Provider: Selene King Referrals: Selene King MD [Primary Care Provider] - Activity Restrictions/Additional Instructions: You had a large fecal impaction that was digitally removed tonight. Continue with oral medications including daily MiraLAX and other bowel regiment to help further treat this and prevent another impaction. Disposition Disposition: Long-Term Facility Discharge Location: [facility]
[2022-01-15 06:24] LABS: Absolute Lymphocyte Count 1.07 X10^3/uL (0.83-4.51); Absolute Neutrophil Count 12.6 X10^3/uL (2.0-7.7); Basophil# 0.06 X10^3/uL; Basophil% 0.4 % (0-1); Eosinophil# 0.02 X10^3/uL; Eosinophils% 0.1 % (0-5); Hematocrit 38.1 % (37-47); Hemoglobin 12.7 g/dL (12.0-15.0); Lymphocyte # 1.07 X10^3/ul (0.83-4.51); Lymphocyte % 7.3 % (19-41); Mean Corp Hgb Conc 33.3 g/dL (32-36); Mean Corpuscular Hgb 30.7 pg (27.0-32.0); Mean Platelet Vol. 7.9 fl (6.2-12.0); Monocyte# 0.85 X10^3/uL; Monocyte% 5.8 % (0-10); NRBC Flagged by Analyzer 0 % (0-5); Neutrophil # 12.58 X10^3/uL (2.7-7.7); Neutrophil % 85.9 % (47-70); Platelet Count 430 K/mm3 (150-450); RBC Distribution Width CV 12.3 % (11.6-14.6); RBC Distribution Width SD 41.1 fl (35.1-43.9); Red Blood Count 4.14 M/mm3 (4.2-5.4); White Blood Count 14.7 K/mm3 (4.4-11.0)
[2022-01-15 06:43] LABS: ALB/GLOB Ratio 0.8 RATIO (0.9-2.4); AST(SGOT) 20 U/L (15-37); Alanine Aminotransfer ALT/SGPT 14 U/L (13-56); Albumin, Serum 3.2 g/dL (3.2-5.0); Alkaline Phosphatase 90 U/L (45-117); Anion Gap 11 (5-15); BUN 16 mg/dL (7-18); Calcium,Total 9.7 mg/dL (8.5-10.1); Chloride 102 mmol/L (98-107); EST Glomerular Filtration Rate 74 mL/min (>60); Est Glom Filt Rate - Afr Amer 89 mL/min (>60); Estimated Creatinine Clearance 45.28 ml/min; Globulin 4.2 g/dL (2.2-4.2); Glucose 119 mg/dL (74-106); Potassium 4.4 mmol/L (3.5-5.1); Protein, Total 7.4 g/dL (6.4-8.2); Sodium Level 141 mmol/L (136-145)
--- NOTE | 2022-01-15 06:44 | CT_ITS ---
HISTORY: abdominal pain, constipation. TECHNIQUE: Helically acquired images were obtained of the abdomen and pelvis after the intravenous administration of 100mL Isovue-370. A radiation dose optimization technique was used for this scan. Coronal and sagittal reformatted images. COMPARISON: None. FINDINGS: LOWER CHEST: Mild right lower lobe atelectasis. BOWEL: Small bowel and appendix nondilated. Moderate stool throughout the colon. Rectal wall thickening with mild perirectal and presacral edema. PERITONEUM: No significant ascites. LIVER: 3 mm hypodensity in the right lobe, too small to characterize. GALLBLADDER/BILIARY TREE: Gallbladder present. SPLEEN/PANCREAS: Homogeneous and nonenlarged. KIDNEYS: No hydronephrosis. Tiny hypodensities in the left kidney. ADRENAL GLANDS: No nodules. VESSELS: Mild ectasia and atherosclerosis of the abdominal aorta. PELVIC ORGANS: Mild anterior bladder wall thickening. BONES: Degenerative change and osteopenia. CT/Abdomen/Pelvis W IV Cont ONLY IMPRESSION: Rectal wall thickening with perirectal inflammation. Moderate stool in the colon. Possible cystitis with mild bladder wall thickening. Small right hepatic and left renal cystic hypodensities, too small to characterize. Electronically Signed: Allison Christie MD at 8:35 EDT ,
[2022-01-15 09:40] VITALS: BP 115/80; PULSE 85; RESP 18; O2SAT 98
--- NOTE | 2022-01-15 09:47 | ED.RN ---
Report called to Cesar MCKINNEY.
--- NOTE | 2022-01-15 10:05 | ED.RN ---
Pt's daughter Aleena updated on pt condition and transport back to [facility].
== END 2022-01-15 10:05 | disposition skilled nursing facility (03) ==
PROVIDERS: Emergency Provider Emergency Medicine; PCP Internal Medicine; Visit Provider Emergency Medicine
DX: K56.41 Fecal impaction (principal); G30.9 Alzheimer's disease, unspecified; F02.80 Dementia in other diseases classified elsewhere, unspecified severity, without behavioral disturbance, psychotic disturbance, mood disturbance, and anxiety; D72.829 Elevated white blood cell count, unspecified; I10 Essential (primary) hypertension; N39.0 Urinary tract infection, site not specified; B96.20 Unspecified Escherichia coli [E. coli] as the cause of diseases classified elsewhere; E78.5 Hyperlipidemia, unspecified; F41.9 Anxiety disorder, unspecified; Z66 Do not resuscitate; Z79.82 Long term (current) use of aspirin; Z79.899 Other long term (current) drug therapy
CPT/HCPCS: 74177; 80053; 85025; 99285; Q9967; A4216

== ENCOUNTER 2022-10-07 00:20 | Observation (INO) | payer MEDICARE, SELFPAY ==
[2022-10-07] VITALS (11 sets, daily range): BP systolic 137–154; BP diastolic 57–70; PULSE 58–75; RESP 15–18; TEMP 35.7–37.5; O2SAT 93–98; BMI 20.4; BMI 19.5
--- NOTE | 2022-10-07 00:22 | EKG12_ITS ---
Test Reason : Blood Pressure : / mmHG Vent. Rate : 070 BPM Atrial Rate : 070 BPM P-R Int : 164 ms QRS Dur : 076 ms QT Int : 400 ms P-R-T Axes : 030 016 033 degrees QTc Int : 432 ms Normal sinus rhythm Normal ECG When compared with ECG of 07-OCT-2022 05:46, MANUAL COMPARISON REQUIRED, DATA IS UNCONFIRMED Confirmed by RAHEEL GIBBONS, OLEKSANDR ([id number]), newspaper managing editor ANNY SEARS ([id number]) on 10/10/2022 11:12:23 AM Referred By: Gladys Confirmed By:OLEKSANDR PICKERING MD
[2022-10-07 00:42] LABS: Absolute Lymphocyte Count 2.21 X10^3/uL (0.83-4.51); Absolute Neutrophil Count 8.7 X10^3/uL (2.0-7.7); Basophil# 0.04 X10^3/uL; Basophil% 0.3 % (0-1); Eosinophil# 0.21 X10^3/uL; Eosinophils% 1.8 % (0-5); Hematocrit 36.2 % (37-47); Hemoglobin 12.6 g/dL (12.0-15.0); Lymphocyte # 2.21 X10^3/ul (0.83-4.51); Lymphocyte % 18.7 % (19-41); Mean Corp Hgb Conc 34.8 g/dL (32-36); Mean Corpuscular Volume 94.8 fL (81-99); Mean Platelet Vol. 8.4 fl (6.2-12.0); Monocyte# 0.65 X10^3/uL; Monocyte% 5.5 % (0-10); NRBC Flagged by Analyzer 0 % (0-5); Neutrophil # 8.66 X10^3/uL (2.7-7.7); Neutrophil % 73.2 % (47-70); Platelet Count 248 K/mm3 (150-450); RBC Distribution Width CV 12.4 % (11.6-14.6); RBC Distribution Width SD 43.6 fl (35.1-43.9); Red Blood Count 3.82 M/mm3 (4.2-5.4); White Blood Count 11.8 K/mm3 (4.4-11.0)
--- NOTE | 2022-10-07 00:55 | RAD_ITS ---
INDICATION: chest pain EXAMINATION/TECHNIQUE: X-RAY - XR Chest 1 View COMPARISON: None. FINDINGS: LINES/DEVICES: None. LUNGS: No consolidation or evidence of an effusion. No evidence of edema or a pneumothorax. Mild left basilar atelectasis versus scarring. MEDIASTINUM AND CARDIOVASCULAR STRUCTURES: Cardiac silhouette is normal in size and contour. Mediastinum is unremarkable. BONES AND SOFT TISSUES: No acute abnormality. RAD/Chest 1 View (Portable) IMPRESSION: No evidence of acute cardiopulmonary disease. Electronically Signed: Cipriano Shipman DO at 1:09 EDT ,
[2022-10-07 01:02] LABS: Anion Gap 7 (5-15); BUN 26 mg/dL (7-18); BUN/Creat Ratio 22.2 RATIO (10-20); Chloride 105 mmol/L (98-107); Creatinine, Serum 1.17 mg/dL (0.55-1.02); EST Glomerular Filtration Rate 48 mL/min (>60); Est Glom Filt Rate - Afr Amer 58 mL/min (>60); Estimated Creatinine Clearance 33.25 ml/min; Glucose 133 mg/dL (74-106); Potassium 3.3 mmol/L (3.5-5.1); Sodium Level 139 mmol/L (136-145); Troponin-I HS (w/2H Reflex) 36 pg/mL (3.0-54.0)
[2022-10-07 02:35] LABS: Reflex Troponin-HS? (from REC) Y
[2022-10-07 03:06] LABS: Troponin-I HS 57 pg/mL (3.0-54.0)
--- NOTE | 2022-10-07 03:37 | EDS_ITS ---
HPI History of Present Illness Chief Complaint: Chest Pain Informant: patient Onset/Context/Timing Onset: Today Activity at onset: sudden Timing: Continuous Quality: Positive for Pressure Location: Substernal Worsened By: Nothing Relieved By: Nothing Associated Symptoms: Positive for Nausea and Vomiting; Negative for Diaphoresis, Dyspnea, Cough, Fever, Lightheadedness, Acid Reflux or Palpitations Narrative Narrative: Patient presents with chest pain that began today. Patient states it began rather suddenly after she was eating cookies. Patient states it feels like it is over the lower substernal area. Patient describes her pain as a pressure. Patient states it has been constant. Patient states nothing makes it better nothing makes it worse. Patient admits to some nausea and vomiting with the pain. Patient denies any shortness of breath or diaphoresis. Patient denies any palpitations or lightheadedness. CVD Risk Factors: Positive for Hypertension and Hypercholesterolemia; Negative for Diabetes, Family History 1' </=55 or Smoking PE Risk Factors: Negative for Recent Travel/Surgery, Recent Immobilization, Prior DVT or PE, Cancer or OCP + Smoking + >/=35 PFSH PFSH Medical History Anxiety Dementia Dementia GERD (gastroesophageal reflux disease) HTN (hypertension) Hyperlipemia Insomnia Major depressive disorder Schizophrenia Unspecified asthma Vitamin D deficiency Home Medications atorvastatin 20 mg tablet 20 mg PO DAILY 11/08/21 [History Last Taken Unknown] aspirin 81 mg tablet 81 mg PO DAILY 11/30/21 [History Last Taken Unknown] buspirone 15 mg tablet 30 mg PO BID 11/30/21 [History Last Taken Unknown] clonidine HCl 0.1 mg tablet 0.1 mg PO BID 11/30/21 [History Last Taken Unknown] donepezil 10 mg tablet 10 mg PO QHS 11/30/21 [History Last Taken Unknown] hydroxyzine HCl 50 mg tablet 50 mg PO TID PRN Anxiety 11/30/21 [History Last Taken Unknown] lisinopril 10 mg tablet 10 mg PO DAILY 11/30/21 [History Last Taken Unknown] melatonin 10 mg capsule 9 mg PO QHS 11/30/21 [History Last Taken Unknown] memantine 5 mg tablet 5 mg PO QPM 11/30/21 [History Last Taken Unknown] mirtazapine 15 mg tablet 15 mg PO QHS 11/30/21 [History Last Taken Unknown] sertraline 150 mg capsule 150 mg PO DAILY 11/30/21 [History Last Taken Unknown] acetaminophen 325 mg tablet 325 mg PO Q6H PRN Pain 01/15/22 [History Last Taken Unknown] quetiapine 25 mg tablet (Seroquel) 25 mg PO BID 01/15/22 [History Last Taken Unknown] Allergy/AdvReac Type Severity Reaction Status Date / Time No Known Allergies Allergy Verified 01/15/22 06:09 Social History Smoking Status: Never smoker ROS ROS ED Constitutional Constitutional ED: Denies chills or fever(s) Eyes Eyes: Denies blurry vision or change in vision ENT ENT ED: Denies rhinorrhea or sore throat Cardiovascular Cardiovascular: Reports chest pain; Denies palpitations Respiratory/Chest Respiratory/Chest: Denies cough or dyspnea Gastrointestinal Gastrointestinal: Reports nausea and vomiting Genitourinary Genitourinary ED: Denies dysuria or hematuria Musculoskeletal Musculoskeletal: Denies back pain or neck pain Integumentary Denies abscess or rash Neurologic Neurologic: Denies headache(s) or weakness Allergic/Immunologic Allergic/Immunologic ED: Denies mouth swelling or urticaria EXAM Physical Exam Const Vital Signs: 10/07/22 00:22 10/07/22 00:27 Temperature 96.2 F L Temperature Source Temporal Pulse Rate 61 Respiratory Rate 18 Blood Pressure 152/70 H Blood Pressure Mean 97 Pulse Ox 93 94 Oxygen Delivery Method Room Air Room Air Positive well nourished and well developed General Appearance ED: well developed and NAD HEENT Reports moist mucous membranes Neck supple and no JVD Resp normal respiratory effort and clear to auscultation bilaterally Cardio regular rate and regular rhythm GI normal to inspection, nondistended, normoactive bowel sounds and non-tender Palpation: soft Extremity normal to inspection General Extremety ED: Negative for edema or tenderness General Extremity: Negative for edema Neuro CN's II-XII intact bilaterally and no sensory deficits noted Sensorium / Orientation: awake and alert Motor Exam: strength 5/5 throughout Psych mental status grossly normal Skin no rashes or lesions noted Heart Score History: Slightly/Non-Suspicious ECG: Normal Age: >/= 65 years Risk Factors: 1 or 2 Risk Factors Troponin: >1 - <3 Normal Limit Score: 4 MDM MDM MDM Narrative Medical decision making narrative: Differential diagnosis includes cardiac dysrhythmia, cardiac ischemia, dysphagia, peptic ulcer disease, gastritis, pneumonia, and anxiety. EKG will be obtained to assess for cardiac dysrhythmia and cardiac ischemia. Chest x-ray will be obtained to assess for pneumonia and pneumothorax. CBC will be obtained to assess for anemia and leukocytosis. Basic metabolic profile will be obtained to assess for electrolyte abnormality and renal function. High-sensitivity t roponin will be obtained to assess for cardiac ischemia. 2-hour repeat high- sensitivity troponin will be obtained to assess for ongoing cardiac ischemia. Lab Data Attestation: I reviewed the patient's lab results. Lab results narrative: CBC was reviewed. There is a slight leukocytosis of 11.8. The remainder is within normal limits. Basic metabolic profile was reviewed. BUN was 26 and creatinine was 1.17. Potassium was slightly low at 3.3. The remainder was within normal limits. High-sensitivity troponin was reviewed and was normal at 36. 2-hour repeat high-sensitivity troponin was reviewed and was slightly elevated at 57. The delta was 21. Labs: Laboratory Results - last 24 hr 10/07/22 10/07/22 00:29 02:42 WBC 11.8 H RBC 3.82 L Hgb 12.6 Hct 36.2 L MCV 94.8 MCH 33.0 H MCHC 34.8 RDW Std Deviation 43.6 RDW Coeff of Niels 12.4 Plt Count 248 MPV 8.4 Immature Gran % (Auto) 0.500 Neut % (Auto) 73.2 H Lymph % (Auto) 18.7 L [place] % (Auto) 5.5 Eos % (Auto) 1.8 Baso % (Auto) 0.3 Absolute Neuts (auto) 8.7 H Absolute Lymphs (auto) 2.21 Nucleated RBC % 0 Sodium 139 Potassium 3.3 L Chloride 105 Carbon Dioxide 27.0 Anion Gap 7 BUN 26 H Creatinine 1.17 H Estim Creat Clear Calc 33.25 Est GFR (MDRD) Af Amer 58 L Est GFR (MDRD) Non-Af 48 L BUN/Creatinine Ratio 22.2 H Glucose 133 H Calcium 9.0 Troponin I High Sens 36 57 H Radiography Chest X-Ray - ED: 1 View, Read by ED Physician, Read by Radiologist and No Acute Disease Diagnostic Testing: Clinical Impression(s) from Imaging Studies Chest X-Ray 10/07/22 00:55 IMPRESSION: No evidence of acute cardiopulmonary disease. Electronically Signed: Cipriano Shipman DO at 1:09 EDT , Portable 1 view chest x-ray was obtained. On my independent interpretation, lung [place] are clear. There is normal cardiac silhouette. Bony thorax is normal. There is no acute process noted. Radiologist also interpreted the x- ray and agrees. EKG Initial EKG: Attestation: I personally reviewed and interpreted this EKG as follows: Interpretation: Sinus Rhythm (61) and No Acute Injury Pattern Comments: EKG was obtained. On my independent interpretation, it showed a normal sinus rhythm with a rate of 61. [place] interval, QRS interval, and QTc intervals were all normal. [place] was normal. There are no acute ST or T wave changes. Prior EKG tracings: available for review Prior: Unchanged (11/08/2021) Treatment and Re-Evaluation :: Patient was given aspirin here. Patient was given nitroglycerin by EMS. Patient was advised of her findings. Given her delta troponin of 21, I recommended admission to the hospital. Patient is agreeable with this. Case was discussed with the hospitalist. She will admit the patient to PCU for observation. Patient and family understood and were agreeable with the plan. All questions were answered. Discharge Plan Triage Chief Complaint: Chest Pain ED Provider: Rustam Rodriguez Dx/Rx/DC Orders Clinical Impression: Elevated troponin, Chest pain Prescriptions: No Action atorvastatin 20 mg tablet 20 mg PO DAILY Patient Comments: TAKE 1 TABLET BY MOUTH DAILY clonidine HCl 0.1 mg Tablet 0.1 mg PO BID donepezil 10 mg Tablet 10 mg PO QHS hydroxyzine HCl 50 mg Tablet 50 mg PO TID PRN (Reason: Anxiety) lisinopril 10 mg Tablet 10 mg PO DAILY aspirin 81 mg Tablet 81 mg PO DAILY mirtazapine 15 mg Tablet 15 mg PO QHS buspirone 15 mg Tablet 30 mg PO BID memantine 5 mg Tablet 5 mg PO QPM melatonin 10 mg Capsule 9 mg PO QHS sertraline 150 mg Capsule 150 mg PO DAILY quetiapine [Seroquel] 25 mg Tablet 25 mg PO BID acetaminophen 325 mg Tablet 325 mg PO Q6H PRN (Reason: Pain) Primary Care Provider: Selene King Referrals: Selene King MD [Primary Care Provider] - Disposition Disposition: Acute Care Hospital [facility]
--- NOTE | 2022-10-07 04:19 | HP.PCM.HOS_ITS ---
HPI - General General Date of Admission: 10/07/22 Date of Service: 10/07/22 Chief Complaint: Chest pain HPI Narrative The patient is a 76 y/o F w/ PMHx: CKD stage II, Anxiety and Depression/Schizophrenia, Dementia unclear type with unclear behavioral disturbance history, HTN, HLD, GERD who presents to the [facility] ED pn 10/07/22 with history of onset of chest discomfort the evening prior admittedly following eating several packages of cookies describing the discomfort as aching and pressure-like in sensation in the midsternal region with no radiation with associated diaphoresis, nausea and 1 bout of emesis noted to be persistent rated 4-5 out of 10 in severity prompting eventual ED evaluation. She denies any notable dyspnea associated. Currently she notes her chest discomfort has resolved. Work-up in the ED included T97.9, heart rate 71, BP 154/57, respiratory rate 17, 97% on room air, CBC with WBC 11.8, hemoglobin 12.6, platelet 248 with left shift, BMP with potassium 3.3, BUN/creatinine 26/1.17, glucose 133, troponin initial 36 with repeat delta 57, chest x-ray with no acute cardiopulmonary findings, EKG with sinus rhythm with no acute evidence of ischemia. In the ED patient administered full-strength aspirin therapy. [facility] Medical History (Updated 10/07/22 @ 04:[address] Nisha Graham MD) Anxiety and depression Dementia GERD (gastroesophageal reflux disease) HTN (hypertension) Hyperlipemia Insomnia Schizophrenia Unspecified asthma Vitamin D deficiency Home Medications atorvastatin 20 mg tablet 20 mg PO DAILY 11/08/21 [History Last Taken Unknown] aspirin 81 mg tablet 81 mg PO DAILY 11/30/21 [History Last Taken Unknown] buspirone 15 mg tablet 30 mg PO BID 11/30/21 [History Last Taken Unknown] clonidine HCl 0.1 mg tablet 0.1 mg PO BID 11/30/21 [History Last Taken Unknown] donepezil 10 mg tablet 10 mg PO QHS 11/30/21 [History Last Taken Unknown] hydroxyzine HCl 50 mg tablet 50 mg PO TID PRN Anxiety 11/30/21 [History Last Taken Unknown] lisinopril 10 mg tablet 10 mg PO DAILY 11/30/21 [History Last Taken Unknown] melatonin 10 mg capsule 9 mg PO QHS 11/30/21 [History Last Taken Unknown] memantine 5 mg tablet 5 mg PO BID 11/30/21 [History Last Taken Unknown] mirtazapine 15 mg tablet 15 mg PO QHS 11/30/21 [History Last Taken Unknown] sertraline 150 mg capsule 150 mg PO DAILY 11/30/21 [History Last Taken Unknown] acetaminophen 325 mg tablet 325 mg PO Q6H PRN Pain 01/15/22 [History Last Taken Unknown] quetiapine 25 mg tablet (Seroquel) 25 mg PO DAILY 01/15/22 [History Last Taken Unknown] Allergy/AdvReac Type Severity Reaction Status Date / Time No Known Allergies Allergy Verified 01/15/22 06:09 Family History (Updated 10/07/22 @ 04:[address] Nisha Graham MD) Mother CVA (cerebral vascular accident) Father Cancer Surgical History (Updated 10/07/22 @ 04:[address] Nisha Graham MD) No history of previous surgery Social History (Updated 10/07/22 @ 04:[address] Nisha Graham MD) housing: jail Smoking Status: Never smoker alcohol intake: never substance use type: does not use ROS ROS Narrative Admission Review of Systems: CONSTITUTIONAL: No weight loss, fever, chills, + weakness or fatigue. HEENT: Eyes: No visual loss, blurred vision, double vision or yellow sclerae. Ears, Nose, Throat: No hearing loss, sneezing, congestion, runny nose or sore throat. SKIN: No rash or itching, lesions, wounds. CARDIOVASCULAR: + chest pain, chest pressure or chest discomfort, No palpitations, edema, orthopnea, syncopal events. RESPIRATORY: No shortness of breath, cough or sputum, wheezing, hemoptysis. GASTROINTESTINAL:+ anorexia, nausea, vomiting, No diarrhea, abdominal pain, melena, BRBPR. GENITOURINARY: No dysuria, frequency, urgency or retention. NEUROLOGICAL: No headache, dizziness, syncope, paralysis, ataxia, numbness or tingling in the extremities, focal weakness, change in bowel or bladder control, seizure. MUSCULOSKELETAL: No muscle, back pain, joint pain or stiffness. HEMATOLOGIC: No anemia, bleeding or bruising. LYMPHATICS: No enlarged nodes. No history of splenectomy. PSYCHIATRIC: + history of depression or anxiety. ENDOCRINOLOGIC: + reports of sweating. No cold or heat intolerance. No polyuria or polydipsia. ALLERGIES: No history of asthma, hives, eczema or rhinitis. Vital Signs Vital Signs Vital Signs: 10/07/22 00:22 10/07/22 00:27 10/07/22 01:21 Temperature 96.2 F L Temperature Source Temporal Pulse Rate 61 74 Respiratory Rate 18 16 Blood Pressure 152/70 H Blood Pressure Mean 97 Pulse Ox 93 94 97 Oxygen Delivery Method Room Air Room Air 10/07/22 02:21 10/07/22 03:21 10/07/22 04:01 Temperature 97.9 F Temperature Source Temporal Pulse Rate 73 74 71 Respiratory Rate 16 15 17 Blood Pressure 147/66 H 154/57 H Blood Pressure Mean 93 89 Pulse Ox 97 98 97 Oxygen Delivery Method Room Air Room Air Weight Weight: 115 lb 4.828 oz Body Mass Index (BMI) 20.4 Physical Exam Narrative Physical Examination: General: Awake, alert, oriented to self, place and recent events, does have underlying dementia, remains cooperative, seated upright in the ED bed in no apparent distress, denies current chest pain, anxious. Skin: Normal color, normal turgor, no icterus, no cyanosis. HEENT: AT/NC, EOMI, PERRLA, MMM, no carotid bruits or JVD noted. Lungs: CTA bilaterally, moderate effort, mild decrease BL bases, no rales, ronchi or wheezing. Heart: Regular rate and rhythm; no gallop, rub audible. Abdomen: Soft, NTTP, ND, mildly hyperactive BS, no HSM. Extremities: No cyanosis, clubbing, or edema. Neurological: Patient awake, alert, oriented as noted, cognitive function appears baseline intact; pupils equally reactive to light and accommodation, cranial nerves grossly normal, moving all 4 extremities, no focal deficits, strength moderately globally decreased. Psychiatric: Affect appears anxious, no acute evidence of depressive feelings. Results Lab / Micro Data 10/07/22 00:29 10/07/22 00:29 Labs: Laboratory Results - last 24 hr 10/07/22 00:29: WBC 11.8 H, RBC 3.82 L, Hgb 12.6, Hct 36.2 L, MCV 94.8, MCH 33.0 H, MCHC 34.8, RDW Std Deviation 43.6, RDW Coeff of Niels 12.4, Plt Count 248, MPV 8.4, Immature Gran % (Auto) 0.500, Neut % (Auto) 73.2 H, Lymph % (Auto) 18.7 L, [place] % (Auto) 5.5, Eos % (Auto) 1.8, Baso % (Auto) 0.3, Absolute Neuts (auto) 8.7 H, Absolute Lymphs (auto) 2.21, Nucleated RBC % 0, Sodium 139, Potassium 3.3 L, Chloride 105, Carbon Dioxide 27.0, Anion Gap 7, BUN 26 H, Creatinine 1.17 H, Estim Creat Clear Calc 33.25, Est GFR (MDRD) Af Amer 58 L, Est GFR (MDRD) Non-Af 48 L, BUN/Creatinine Ratio 22.2 H, Glucose 133 H, Calcium 9.0, Troponin I High Sens 36 10/07/22 02:42: Troponin I High Sens 57 H Radiology Impression Chest X-Ray 10/07/22 00:55 IMPRESSION: No evidence of acute cardiopulmonary disease. Electronically Signed: Cipriano Shipman DO at 1:09 EDT , Assessment & Plan Assessment/Plan (1) Chest pain: PLAN: Plan The patient is a 76 y/o F w/ PMHx: CKD stage II, Anxiety and Depression/Schizophrenia, Dementia unclear type with unclear behavioral disturbance history, HTN, HLD, GERD who presents to the [facility] ED pn 10/07/22 with history of onset of chest discomfort the evening prior admittedly following eating several packages of cookies describing the discomfort as aching and pressure-like in sensation in the midsternal region with no radiation with associated diaphoresis, nausea and 1 bout of emesis noted to be persistent rated 4-5 out of 10 in severity prompting eventual ED evaluation. #1. Chest Pain: EKG in ED with sinus rhythm with no acute evidence of ischemia, CXR w/ no acute cardiopulmonary findings, initial trop initial 36 with elevated repeat delta 57. Will admit to PCU, place on a monitored bed to assure no acute myocardial infarction with serial cardiac enzymes and EKGs. If repeat serial cardiac enzymes remain similar we will pursue a.m. cardiac stress testing. Magnesium level requested. FLP in AM. ASA, NG. #2. Hypokalemia: Admission K+ 3.3, magnesium level requested, supplementation given, repeat level in AM. #3. Possible advancing chronic kidney disease versus insufficiency on CKD stage II: Admission BUN/creatinine 26/1.17, baseline noted prior 0.8-0.9, will judiciously hydrate and repeat CMP in AM. #4. Hyperglycemia, mild: Admission glucose 133, hemoglobin A1c requested to be cautious. #5. Anxiety and depression/schizophrenia unclear specific type: We will continue patient home BuSpar, as needed hydroxyzine, mirtazapine, Seroquel and sertraline home regimen. #6. Dementia unclear type with unclear behavioral disturbance history: Complicates presentation, we will continue patient home donepezil and memantine home regimen, maintain on fall precautions. #7. Hypertension: Continue home regimen including clonidine, lisinopril with hold parameters as needed, PRN hydralazine. #8. Hyperlipidemia: Continue home statin regimen. AM FLP. #9. GERD: We will have as needed Mylanta if necessary. #10. DVT prophylaxis: Lovenox. #11. 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 Discussed CODE status at length including difference between FULL code, DNR-CCA and DNR-CC status. Following discussions about the differences in these status, requested DNR-CCA, no intubation status. Advanced Care Planning Face to Face Time: 16 minutes. Admission Evaluation Time spent evaluating chart, patient history, patient evaluation, care planning and discussion with specialists: 55 minutes. Charges/Coding Visit Charges Inpatient E&M: 56466 Init Hosp L2 Procedures Hospitalists Procedures: 07513 Advncd Care Plan 30 Min
--- NOTE | 2022-10-07 04:24 | EKG12_ITS ---
Test Reason : CHEST PAIN ADMIT Blood Pressure : / mmHG Vent. Rate : 071 BPM Atrial Rate : 071 BPM P-R Int : 164 ms QRS Dur : 078 ms QT Int : 406 ms P-R-T Axes : 034 012 053 degrees QTc Int : 441 ms Normal sinus rhythm Normal ECG When compared with ECG of 07-OCT-2022 00:24, MANUAL COMPARISON REQUIRED, DATA IS UNCONFIRMED Confirmed by RAHEEL GIBBONS, OLEKSANDR ([id number]), film or videotape editor ANNY SEARS ([id number]) on 10/10/2022 11:14:11 AM Referred By: JULIO C Confirmed By:OLEKSANDR PICKERING MD
--- NOTE | 2022-10-07 05:44 | EKG12_ITS ---
Test Reason : CP Blood Pressure : / mmHG Vent. Rate : 061 BPM Atrial Rate : 061 BPM P-R Int : 170 ms QRS Dur : 082 ms QT Int : 426 ms P-R-T Axes : 036 005 065 degrees QTc Int : 428 ms Normal sinus rhythm Normal ECG Confirmed by BERNARD GIBBONS, MARIELLE ([id number]), multimedia editor ANNY SEARS ([id number]) on 10/10/2022 11:38:28 AM Referred By: BASIA Confirmed By:MOODY WAGNER MD
[2022-10-07] MEDS: 0.9% Saline Lock 10 ML Syringe IV (06:46)
[2022-10-07] MEDS: 0.9% Normal Saline 1,000 ML 100 ML IV (06:46)
[2022-10-07] MEDS: Potassium Chloride Oral Tablet 20 MEQ 40 MEQ PO (06:50)
[2022-10-07 07:19] LABS: Magnesium 2.1 mg/dL (1.6-2.6)
[2022-10-07 07:26] LABS: Troponin-I HS 111 pg/mL (3.0-54.0)
--- NOTE | 2022-10-07 08:08 | PN.HOSP_ITS ---
Reason for Visit Reason for Visit: Diagnoses Chest pain, unspecified (10/07/22) Subjective Subjective Complains of chest pain radiating to her back. Upset that the RN was responding to her call button (it wasn't pressed). Objective Data Objective Data Vital Signs: Vital Signs Temp Pulse Resp BP Pulse Ox O2 Del Method 37.2 C 69 18 149/67 H 96 Room Air 10/07/22 05:45 10/07/22 05:45 10/07/22 05:45 10/07/22 05:45 10/07/22 05:45 10/07/22 06:58 Oxygen Delivery Method Room Air Weight: 50.1 kg Body Mass Index (BMI) 19.5 Lab / Micro Data 10/07/22 00:29 10/07/22 00:29 Labs: Laboratory Results - last 24 hr 10/07/22 00:29: WBC 11.8 H, RBC 3.82 L, Hgb 12.6, Hct 36.2 L, MCV 94.8, MCH 33.0 H, MCHC 34.8, RDW Std Deviation 43.6, RDW Coeff of Niels 12.4, Plt Count 248, MPV 8.4, Immature Gran % (Auto) 0.500, Neut % (Auto) 73.2 H, Lymph % (Auto) 18.7 L, Dale % (Auto) 5.5, Eos % (Auto) 1.8, Baso % (Auto) 0.3, Absolute Neuts (auto) 8.7 H, Absolute Lymphs (auto) 2.21, Nucleated RBC % 0, Sodium 139, Potassium 3.3 L, Chloride 105, Carbon Dioxide 27.0, Anion Gap 7, BUN 26 H, Creatinine 1.17 H, Estim Creat Clear Calc 33.25, Est GFR (MDRD) Af Amer 58 L, Est GFR (MDRD) Non-Af 48 L, BUN/Creatinine Ratio 22.2 H, Glucose 133 H, Calcium 9.0, Troponin I High Sens 36 10/07/22 02:42: Magnesium 2.1, Troponin I High Sens 57 H 10/07/22 06:54: Troponin I High Sens 111 H Radiography Diagnostic Testing: Radiology Impression Chest X-Ray 10/07/22 00:55 IMPRESSION: No evidence of acute cardiopulmonary disease. Electronically Signed: Cipriano Shipman DO at 1:09 EDT , Physical Exam Const alert Constitutional Narrative: anxious. HEENT head/scalp atraumatic Resp normal respiratory effort, no retractions, no use of accessory muscles and clear to auscultation bilaterally Cardio regular rate, regular rhythm, S1 normal heart sound and S2 normal heart sound GI normal to inspection, nondistended, normoactive bowel sounds, soft to palpation, non-tender and non-distended Extremity normal to inspection Assessment & Plan Assessment/Plan (1) NSTEMI, initial episode of care: PLAN: troponins peaked at 111. Consult cardiology. Plan for stress test. Check lipids Continue ASA and atorvastatin. Pt complaining of chest and back pain. Some of this may be anxiety, but given symptomatology and mild troponin elevation, chest CTA of chest. (2) Hypokalemia: PLAN: Replaced Magnesium 2.1 Monitor (3) Hyperglycemia: PLAN: Mild, may be reactive A1c 4.9 PLAN: Plan Chronic complicating conditions: * Anxiety and depression/schizophrenia: continue sertraline and buspirone * Dementia unclear type with unclear behavioral disturbance history: continue donepezil and memantine * Hypertension: fair control. Continue clonidine, lisinopril with hold parameters, PRN hydralazine. * Hyperlipidemia: Continue atorvastatin. F/U lipid panel * GERD: cannot rule out being etiology of chest pain as it occurred while eating a cookie, however, w trop elevation, cardiac w/u underway DVT prophylaxis: Lovenox. CODE status: DNRCCA, no intubation. Charges/Coding Visit Charges Inpatient E&M: 72134 Subs Hosp L2
[2022-10-07 08:35] LABS: Hemoglobin A1c 4.9 % (3.8-5.6)
[2022-10-07] MEDS: Acetaminophen 325 MG Tablet 650 MG PO ×2 (08:36→19:22)
[2022-10-07] MEDS: hydrOXYzine PAM 25 MG Capsule 50 MG PO (08:36)
[2022-10-07] MEDS: Memantine Hydrochloride 5 MG Tablet PO ×2 (08:39→21:13)
[2022-10-07] MEDS: Famotidine 20 MG Tablet PO ×2 (08:39→21:13)
[2022-10-07] MEDS: Sertraline 50 MG Tablet 150 MG PO (08:40)
[2022-10-07] MEDS: Lisinopril 10 MG Tablet PO (08:40)
[2022-10-07] MEDS: busPIRone 15 MG TABLET 30 MG PO ×2 (08:41→21:13)
[2022-10-07] MEDS: cloNIDine HCl 0.1 MG Tablet PO ×2 (08:41→21:13)
[2022-10-07] MEDS: Aspirin 81 MG TAB.CHEW PO (08:42)
[2022-10-07] MEDS: QUEtiapine 25 MG Tablet PO (08:42)
--- NOTE | 2022-10-07 09:30 | PCM.CONS.C ---
Assessment & Plan Assessment/Plan (1) Chest pain: QUALIFIERS: Ischemic chest pain type: unspecified angina pectoris type Chest pain type: chest pain due to myocardial ischemia Qualified Code(s): I25.9 - Chronic ischemic heart disease, unspecified PLAN: She presents with chest discomfort and some atypical features for this. Etiology is unclear at this particular time. She does have minimal troponin elevation. My recommendation is to perform a pharmacologic myocardial perfusion stress test and depending on the findings further recommendations will be made. An echocardiogram should also be performed to assess her ventricular function. Thank you for allowing me to participate in the care of your patient. Please don't hesitate to call if any issues arise. HPI Consult Data Date of Consult: 10/07/22 HPI Narrative HPI Narrative: PRITI SANTANA, is a 76 F who presents to the emergency room after eating several packages of cookies and describing chest discomfort aching and pressure-like sensation in the midsternal region with no radiation. It was associated with nausea and some diaphoresis. She does have a history of anxiety and depression and schizophrenia and possibly dementia. She also has a history of hypertension hyperlipidemia and gastroesophageal reflux disease. Her initial blood work was noted to be unremarkable with a minimal elevation in troponin to a peak of approximately 120. Hemoglobin and chemistry profile was noted to be normal. Cardiology was called for further evaluation and management. At this time she complains of sharp chest discomfort and EKG which was done demonstrates normal sinus rhythm with no acute changes. [facility] Medical History Anxiety and depression Dementia GERD (gastroesophageal reflux disease) HTN (hypertension) Hyperlipemia Insomnia Schizophrenia Unspecified asthma Vitamin D deficiency Home Medications atorvastatin 20 mg tablet 20 mg PO DAILY 11/08/21 [History Last Taken Unknown] aspirin 81 mg tablet 81 mg PO DAILY 11/30/21 [History Last Taken Unknown] buspirone 15 mg tablet 30 mg PO BID 11/30/21 [History Last Taken Unknown] clonidine HCl 0.1 mg tablet 0.1 mg PO BID 11/30/21 [History Last Taken Unknown] donepezil 10 mg tablet 10 mg PO QHS 11/30/21 [History Last Taken Unknown] hydroxyzine HCl 50 mg tablet 50 mg PO TID PRN Anxiety 11/30/21 [History Last Taken Unknown] lisinopril 10 mg tablet 10 mg PO DAILY 11/30/21 [History Last Taken Unknown] melatonin 10 mg capsule 9 mg PO QHS 11/30/21 [History Last Taken Unknown] memantine 5 mg tablet 5 mg PO BID 11/30/21 [History Last Taken Unknown] mirtazapine 15 mg tablet 15 mg PO QHS 11/30/21 [History Last Taken Unknown] sertraline 150 mg capsule 150 mg PO DAILY 11/30/21 [History Last Taken Unknown] acetaminophen 325 mg tablet 325 mg PO Q6H PRN Pain 01/15/22 [History Last Taken Unknown] quetiapine 25 mg tablet (Seroquel) 25 mg PO DAILY 01/15/22 [History Last Taken Unknown] Allergy/AdvReac Type Severity Reaction Status Date / Time No Known Allergies Allergy Verified 01/15/22 06:09 Family History Mother CVA (cerebral vascular accident) Father Cancer Surgical History No history of previous surgery Social History housing: intermediate Smoking Status: Never smoker alcohol intake: never substance use type: does not use ROS Constitutional Constitutional: Denies fever(s) or weight loss Eyes Eyes: Reports systems reviewed and no addt'l complaints, except as documented ENT HEENT: Reports systems reviewed and no addt'l complaints, except as documented Cardiovascular Cardiovascular: Reports chest pain at rest; Denies chest pain with activity, dyspnea at rest, dyspnea on exertion, edema, palpitations or paroxysmal nocturnal dyspnea Respiratory/Chest Respiratory/Chest: Denies dyspnea on exertion, productive cough, shortness of breath at rest or shortness of breath with exertion Gastrointestinal Gastrointestinal: Denies change in bowel habits, nausea, vomiting or weight changes Genitourinary Genitourinary: Denies difficulty urinating Musculoskeletal Musculoskeletal: Denies joint stiffness or muscle weakness Integumentary Integumentary: Denies lesions Neurologic Neurologic: Denies dizziness or syncope Psychiatric Psychiatric: Denies anxiety Endocrine Endocrinology: Denies excessive sweating or fatigue Hematologic/Lymphatic Hematologic/Lymphatic: Denies anemia Allergic/Immunologic Allergic/Immunologic: Denies seasonal rhinorrhea Physical Exam Const alert, oriented x3 and no apparent distress General Appearance: cooperative HEENT hearing grossly normal bilaterally Head and Scalp: atraumatic Eyes EOMs intact bilaterally Neck General: normal visual inspection Chest inspection of chest normal and palpation of chest normal Resp normal respiratory effort Auscultation: clear to auscultation bilaterally Cardio regular rate, regular rhythm, S1 normal heart sound and S2 normal heart sound Jugular Venous Distention: JVD GI normal to inspection, nondistended, normoactive bowel sounds Extremity normal capillary refill and no pedal edema Peripheral Pulses: Yes pulses 2+ throughout and femoral pulses present Skin no rashes or lesions noted Neuro oriented x3 and CN's II-XII intact bilaterally Psych Appearance: grossly normal and appropriate Risk Stratification Risk Stratification Applicable: Yes Age >/= 65: Yes >/= 3 CAD Risk Factors (HTN, HLD, DM, family hx of CAD, or current smoker): No Aspirin Use in the Past 7 Days: No Severe Angina (>/= episodes in 24 hours): No EKG ST Changes >/= 0.5mm: No Positive Cardiac Marker: Yes ALYSIA Risk Stratification Score: 2 ALYSIA % Risk: 8% Risk Objective Data Vital Signs: Vital Signs Temp Pulse Resp BP Pulse Ox O2 Del Method 98.8 F 75 16 146/61 H 96 Room Air 10/07/22 08:34 10/07/22 08:34 10/07/22 08:34 10/07/22 08:34 10/07/22 08:34 10/07/22 08:45 Oxygen Delivery Method Room Air Weight: 110 lb 7.225 oz Body Mass Index (BMI) 19.5 Lab / Micro Data 10/07/22 00:29 10/07/22 00:29 Labs: Laboratory Results - last 24 hr 10/07/22 00:29: WBC 11.8 H, RBC 3.82 L, Hgb 12.6, Hct 36.2 L, MCV 94.8, MCH 33.0 H, MCHC 34.8, RDW Std Deviation 43.6, RDW Coeff of Niels 12.4, Plt Count 248, MPV 8.4, Immature Gran % (Auto) 0.500, Neut % (Auto) 73.2 H, Lymph % (Auto) 18.7 L, Harper % (Auto) 5.5, Eos % (Auto) 1.8, Baso % (Auto) 0.3, Absolute Neuts (auto) 8.7 H, Absolute Lymphs (auto) 2.21, Nucleated RBC % 0, Sodium 139, Potassium 3.3 L, Chloride 105, Carbon Dioxide 27.0, Anion Gap 7, BUN 26 H, Creatinine 1.17 H, Estim Creat Clear Calc 33.25, Est GFR (MDRD) Af Amer 58 L, Est GFR (MDRD) Non-Af 48 L, BUN/Creatinine Ratio 22.2 H, Glucose 133 H, Calcium 9.0, Troponin I High Sens 36 10/07/22 02:42: Magnesium 2.1, Troponin I High Sens 57 H 10/07/22 06:54: Hemoglobin A1c 4.9, Troponin I High Sens 111 H Cardiology Labs/Tests 10/07/22 00:29: WBC 11.8 H, RBC 3.82 L, Hgb 12.6, Hct 36.2 L, MCV 94.8, MCH 33.0 H, MCHC 34.8, Plt Count 248, MPV 8.4, Immature Gran % (Auto) 0.500, Neut % (Auto) 73.2 H, Lymph % (Auto) 18.7 L, Harper % (Auto) 5.5, Eos % (Auto) 1.8, Baso % (Auto) 0.3, Absolute Neuts (auto) 8.7 H, Nucleated RBC % 0, Sodium 139, Potassium 3.3 L, Chloride 105, Carbon Dioxide 27.0, Anion Gap 7, BUN 26 H, Creatinine 1.17 H, Est GFR (MDRD) Af Amer 58 L, Est GFR (MDRD) Non-Af 48 L, BUN/Creatinine Ratio 22.2 H, Glucose 133 H, Calcium 9.0 10/07/22 02:42: Magnesium 2.1 10/07/22 06:54: Hemoglobin A1c 4.9 Rhythm: EKG: ECHO: Stress Test: Cardiac Cath: PCI: CT Surgery: Holter monitor: EPS: PPM: CXR: Chest CT Scan: Radiography Diagnostic Testing: Radiology Impression Chest X-Ray 10/07/22 00:55 IMPRESSION: No evidence of acute cardiopulmonary disease. Electronically Signed: Cipriano Shipman DO at 1:09 EDT ,
--- NOTE | 2022-10-07 09:33 | ECHOD_ITS ---
Reason For Study: Chest Pain Procedure This was a 2D Doppler, Color Flow transthoracic echocardiogram. Exam performed in department. Left Ventricle Normal LV size. Left ventricular systolic function is normal. The estimated ejection fraction is 60 %. Stage 1 diastolic dysfunction. No regional wall motion abnormalities noted. Right Ventricle Normal RV size. Normal systolic function. Atria Normal left atrium. Normal right atrium. Mitral Valve Normal mitral valve. Tricuspid Valve Normal tricuspid valve. Aortic Valve Normal aortic valve. Mild (1+) aortic valve insufficiency. Pulmonic Valve The pulmonic valve is not well visualized. Great Vessels Normal aortic root. The pulmonary artery is normal size. Normal inferior vena cava. Pericardium/Pleural No pericardial effusion. MMode/2D Measurements & Calculations LVIDd: 3.8 cm IVSd: 0.58 cm Ao root diam: 3.5 cm LVIDs: 2.6 cm LVPWd: 0.83 cm LA dimension: 3.0 cm RVDd: 2.8 cm FS: 29.9 % LAV(MOD-bp): 28.7 ml LA A4 area: 12.0 cm2 RA A4 area: 9.2 cm2 LAV(MOD-bp) Indexed: 19.0 ml/m2 LAV(MOD-sp2): 30.2 ml LAV(MOD-sp4): 27.3 ml Time Measurements MV dec time: 0.24 sec Doppler Measurements & Calculations MV E max sanjeev: 64.9 cm/sec Lat Peak E' Sanjeev: 13.0 cm/sec Med Peak E' Sanjeev: 9.8 cm/sec MV A max sanjeev: 80.7 cm/sec E/E' lat: 5.0 E/E' med: 6.6 MV E/A: 0.80 MV V2 max: 78.6 cm/sec MV P1/2t max sanjeev: 70.9 cm/sec Ao V2 max: 118.4 cm/sec MV max P.5 mmHg MV P1/2t: 80.9 msec Ao max P.6 mmHg MV V2 mean: 44.6 cm/sec MV dec slope: 256.8 cm/sec2 Ao V2 mean: 75.1 cm/sec MV mean P.92 mmHg MVA(P1/2t): 2.7 cm2 Ao mean P.6 mmHg MV V2 VTI: 23.5 cm Ao V2 VTI: 26.4 cm AV (velocity ratio): 0.83 AI max sanjeev: 387.2 cm/sec LV V1 max: 92.8 cm/sec PA V2 max: 94.1 cm/sec AI max P.0 mmHg LV V1 max P.5 mmHg PA V2 mean: 69.8 cm/sec LV V1 mean P.7 mmHg AI dec slope: 179.7 cm/sec2 LV V1 mean: 60.5 cm/sec AI P1/2t: 631.1 msec LV V1 VTI: 21.9 cm ECHO/Echo Complete Interpretation Summary Normal LV size. Left ventricular systolic function is normal. The estimated ejection fraction is 60 %. Stage 1 diastolic dysfunction. Ordering Physician: Rudolph James Performed By: Chi Fitch RCS
[2022-10-07] MEDS: Enoxaparin 40 MG/0.4 ML Syringe SC (12:13)
--- NOTE | 2022-10-07 13:07 | CT_ITS ---
STUDY: CTA CHEST REASON FOR EXAM: Female, 76 years old. chest pain RADIATION DOSAGE (If Supplied By Facility): CTDIvol = ( 8.07 ) mGy, DLP = ( 255.05 ) mGycm TECHNIQUE: The examination was performed with the intravenous administration of IV 100mL Isovue-370. Post-processing of the angiographic images was performed, with multiplanar reformation and 3D reconstruction. Individualized dose optimization techniques were used for this CT. COMPARISON: Chest x-ray earlier today FINDINGS: Normal enhancement of the main pulmonary artery and right and left pulmonary arteries. Normal enhancement of the bilateral peripheral pulmonary arteries. There is no demonstrated pulmonary embolism. Normal thoracic aorta and visualized great vessels. There is no demonstrated aortic dissection. Normal heart and pericardium. Normal mediastinum. Normal hilar regions. Normal visualized trachea and bronchi. The lungs are well expanded. Some dependent bibasilar atelectasis. Mild emphysema. No noncalcified nodule or mass. Normal pleura. Normal chest wall structures. Normal osseous structures. Normal visualized upper abdomen. CT/CTA Chest W/WO Contrast IMPRESSION: Normal CTA chest examination, without a demonstrated pulmonary embolism or arterial dissection. Electronically Signed: Chirag Saravia MD at 16:18 EDT ,
[2022-10-07] MEDS: MELATONIN 3 MG TABLET 9 MG PO (21:13)
[2022-10-07] MEDS: Atorvastatin Calcium 20 MG Tablet PO (21:13)
[2022-10-07] MEDS: Donepezil HCl 10 MG Tablet PO (21:14)
[2022-10-07] MEDS: Mirtazapine 15 MG Tablet PO (21:14)
[2022-10-08 02:44] VITALS: BP 142/69; PULSE 61; RESP 16; TEMP 36.7; O2SAT 96
[2022-10-08 02:45] VITALS: PULSE 66
[2022-10-08 06:00] VITALS: BMI 19.9
[2022-10-08 07:00] LABS: Absolute Lymphocyte Count 2.15 X10^3/uL (0.83-4.51); Absolute Neutrophil Count 4.4 X10^3/uL (2.0-7.7); Basophil# 0.04 X10^3/uL; Basophil% 0.6 % (0-1); Eosinophil# 0.08 X10^3/uL; Eosinophils% 1.1 % (0-5); Hemoglobin 12.4 g/dL (12.0-15.0); Lymphocyte # 2.15 X10^3/ul (0.83-4.51); Lymphocyte % 29.6 % (19-41); Mean Corp Hgb Conc 33.5 g/dL (32-36); Mean Corpuscular Hgb 32.5 pg (27.0-32.0); Mean Corpuscular Volume 97.1 fL (81-99); Mean Platelet Vol. 8.8 fl (6.2-12.0); Monocyte# 0.57 X10^3/uL; Monocyte% 7.9 % (0-10); NRBC Flagged by Analyzer 0 % (0-5); Neutrophil # 4.39 X10^3/uL (2.7-7.7); Neutrophil % 60.4 % (47-70); Platelet Count 254 K/mm3 (150-450); RBC Distribution Width CV 12.7 % (11.6-14.6); RBC Distribution Width SD 45.1 fl (35.1-43.9); Red Blood Count 3.81 M/mm3 (4.2-5.4); White Blood Count 7.3 K/mm3 (4.4-11.0)
[2022-10-08 07:30] LABS: AST(SGOT) 18 U/L (15-37); Alanine Aminotransfer ALT/SGPT 17 U/L (13-56); Albumin, Serum 3.5 g/dL (3.2-5.0); Alkaline Phosphatase 58 U/L (45-117); Anion Gap 5 (5-15); BUN 19 mg/dL (7-18); BUN/Creat Ratio 16.7 RATIO (10-20); Calcium,Total 9.2 mg/dL (8.5-10.1); Chloride 108 mmol/L (98-107); Cholesterol 167 mg/dL (200); Creatinine, Serum 1.14 mg/dL (0.55-1.02); EST Glomerular Filtration Rate 49 mL/min (>60); Est Glom Filt Rate - Afr Amer 59 mL/min (>60); Estimated Creatinine Clearance 33.27 ml/min; Globulin 3.4 g/dL (2.2-4.2); Glucose 85 mg/dL (74-106); High Density Lipoprotein 48 mg/dL; Potassium 4.2 mmol/L (3.5-5.1); Protein, Total 6.9 g/dL (6.4-8.2); Sodium Level 139 mmol/L (136-145); Triglycerides 70 mg/dL; Very Low Density Lipoprotein 14 mg/dL (5-40)
[2022-10-08 07:54] VITALS: O2SAT 96
--- NOTE | 2022-10-08 08:00 | NURSING ---
Pt CHERELLE for nuclear stress test
[2022-10-08 08:30] VITALS: BP 176/86; PULSE 68; RESP 14; TEMP 36.8; O2SAT 98
[2022-10-08] MEDS: Aspirin 81 MG TAB.CHEW PO (10:36)
[2022-10-08] MEDS: cloNIDine HCl 0.1 MG Tablet PO (10:37)
[2022-10-08] MEDS: Sertraline 50 MG Tablet 150 MG PO (10:37)
[2022-10-08] MEDS: Enoxaparin 40 MG/0.4 ML Syringe SC (10:37)
[2022-10-08] MEDS: Lisinopril 10 MG Tablet PO (10:37)
[2022-10-08] MEDS: Memantine Hydrochloride 5 MG Tablet PO (10:37)
[2022-10-08] MEDS: busPIRone 15 MG TABLET 30 MG PO (10:37)
[2022-10-08] MEDS: Famotidine 20 MG Tablet PO (10:37)
[2022-10-08] MEDS: QUEtiapine 25 MG Tablet PO (10:38)
--- NOTE | 2022-10-08 10:39 | CASEMGMT ---
Discharge Planning Patient resides at [facility]. Updates sent via [facility]. Jenny Iniguez, Discharge Planning Asst.
--- NOTE | 2022-10-08 12:25 | PN.CARD_ITS ---
Subjective Subjective Patient seen and evaluated. Appears to be doing well. Objective Data Vital Signs: Vital Signs Temp Pulse Resp BP Pulse Ox O2 Del Method 98.2 F 68 14 176/86 H 98 Room Air 10/08/22 08:30 10/08/22 08:30 10/08/22 08:30 10/08/22 08:30 10/08/22 08:30 10/08/22 10:00 Oxygen Delivery Method Room Air Weight: 112 lb 6.972 oz Body Mass Index (BMI) 19.9 Intake & Output: Intake and Output for Last 24 Hours 10/06/22 10/07/22 10/08/22 23:59 23:59 23:59 Intake Total 1480 / 1780 400 / 400 Balance 1480 / 1780 400 / 400 Lab / Micro Data 10/08/22 05:19 10/08/22 05:19 Labs: Laboratory Results - last 24 hr 10/08/22 05:19: WBC 7.3, RBC 3.81 L, Hgb 12.4, Hct 37.0, MCV 97.1, MCH 32.5 H, MCHC 33.5, RDW Std Deviation 45.1 H, RDW Coeff of Niels 12.7, Plt Count 254, MPV 8.8, Immature Gran % (Auto) 0.400, Neut % (Auto) 60.4, Lymph % (Auto) 29.6, [place] % (Auto) 7.9, Eos % (Auto) 1.1, Baso % (Auto) 0.6, Absolute Neuts (auto) 4.4, Absolute Lymphs (auto) 2.15, Nucleated RBC % 0, Sodium 139, Potassium 4.2, Chlo ride 108 H, Carbon Dioxide 26.0, Anion Gap 5, BUN 19 H, Creatinine 1.14 H, Estim Creat Clear Calc 33.27, Est GFR (MDRD) Af Amer 59 L, Est GFR (MDRD) Non-Af 49 L, BUN/Creatinine Ratio 16.7, Glucose 85, Calcium 9.2, Total Bilirubin 0.50, AST 18, ALT 17, Alkaline Phosphatase 58, Total Protein 6.9, Albumin 3.5, Globulin 3.4, Albumin/Globulin Ratio 1.0, Triglycerides 70, Cholesterol 167, LDL Cholest meron 105, VLDL Cholesterol 14, HDL Cholesterol 48 Cardiology Labs/Tests 10/08/22 05:19: WBC 7.3, RBC 3.81 L, Hgb 12.4, Hct 37.0, MCV 97.1, MCH 32.5 H, MCHC 33.5, Plt Count 254, MPV 8.8, Immature Gran % (Auto) 0.400, Neut % (Auto) 60.4, Lymph % (Auto) 29.6, [place] % (Auto) 7.9, Eos % (Auto) 1.1, Baso % (Auto) 0.6, Absolute Neuts (auto) 4.4, Nucleated RBC % 0, Sodium 139, Potassium 4.2, Chloride 108 H, Carbon Dioxide 26.0, Anion Gap 5, BUN 19 H, Creatinine 1.14 H, Est GFR (MDRD) Af Amer 59 L, Est GFR (MDRD) Non-Af 49 L, BUN/Creatinine Ratio 16.7, Glucose 85, Calcium 9.2, Total Bilirubin 0.50, Triglycerides 70, Cholesterol 167, LDL Cholesterol 105, VLDL Cholesterol 14, HDL Cholesterol 48 Rhythm: EKG: ECHO: Stress Test: Cardiac Cath: PCI: CT Surgery: Holter monitor: EPS: PPM: CXR: Chest CT Scan: Radiography Diagnostic Testing: Radiology Impression Chest CTA 10/07/22 13:07 IMPRESSION: Normal CTA chest examination, without a demonstrated pulmonary embolism or arterial dissection. Electronically Signed: Chirag Saravia MD at 16:18 EDT , Physical Exam Const alert, oriented x3 and no apparent distress General Appearance: cooperative HEENT hearing grossly normal bilaterally Head and Scalp: atraumatic Eyes EOMs intact bilaterally Neck General: normal visual inspection Chest inspection of chest normal and palpation of chest normal Resp normal respiratory effort Auscultation: clear to auscultation bilaterally Cardio regular rate, regular rhythm, S1 normal heart sound and S2 normal heart sound Jugular Venous Distention: JVD GI normal to inspection, nondistended, normoactive bowel sounds Extremity normal capillary refill and no pedal edema Peripheral Pulses: Yes pulses 2+ throughout and femoral pulses present Skin no rashes or lesions noted Neuro oriented x3 and CN's II-XII intact bilaterally Psych Appearance: grossly normal and appropriate Assessment & Plan Assessment/Plan (1) Chest pain: QUALIFIERS: Chest pain type: chest pain due to myocardial ischemia Ischemic chest pain type: unspecified angina pectoris type Qualified Code(s): I25.9 - Chronic ischemic heart disease, unspecified PLAN: She presents with chest discomfort and some atypical features for this. Etiology is unclear at this particular time. She underwent a pharmacologic myocardial perfusion stress test which did not demonstrate any evidence of ischemia. At this time I think that her chest pain is atypical enough she can be managed on outpatient medical therapy. Thank you for allowing me to participate in the care of your patient. Please don't hesitate to call if any issues arise.
--- NOTE | 2022-10-08 13:17 | CASEMGMT ---
Patient is from [place]. ROSETTA spoke with patient and her daughter Aleena. They confirm the plan is to return to [place]. ROSETTA asked Jenny humphreys/c estate planning paralegal to notify [facility] patient will be returning today. Rhianna SOUZA
[2022-10-08 13:40] VITALS: BP 131/61; PULSE 72; RESP 14; TEMP 36.6; O2SAT 97
--- NOTE | 2022-10-08 13:52 | PCM.TXEXTCAR ---
Diet Diet Order/Speech Therapy: 10/08/22 11:08 Diet: Regular - General Type of Dietary Supplement:: Ensure Plus High Protein Is pt able to select menu?: Yes Diet Comments: Ensure Plus HP strawberry flavor w/ dinner Routine Orders/Code Status O2 Frequency: PRN Keep PO Greater than or Equal to (%): 92 Routine Lab Work: CBC (As needed) and BMP (As needed) Code Status: DNRCC-A (No intubation) Problem/Diagnosis (1) Chest pain: Status: Acute Code(s): R07.9 - Chest pain, unspecified Allergies/Procedures Done in Hospital Allergies No Known Allergies Allergy (Verified 01/15/22 06:09) Procedures: 2-D Echocardiogram, Cardiac catheterization and EKG Type of Care/Length of Stay Estimated LOS: More Than 30 Days Type of Care Needed: Intermediate Rehab Potential: Fair Prognosis: Fair Additional Orders/Day of Discharge Day of Discharge: 10/08/22 Dietary and Speech Recommendations Dietitian Recommendations/Changes: Continue with Cardiac - Heart Healthy diet at this time. Pt requesting Ensure Plus HP w/ meals. Ordered with dinner this evening, yet the pt is NPO tomorrow, so Ensure will need to be reordered with meals as needed/requested by the pt. Will continue to monitor oral intakes and modify interventions as needed. Discharge Plan Admission Admit Date/Time: 10/07/22 04:19 Attending Provider: Shama Alvarado Primary Care Provider: Selene King Consulting Providers: Nihsa Graham; Rudolph James; Rustam Colón Discharge Orders/Prescriptions Prescriptions: No Action atorvastatin 20 mg tablet 20 mg PO DAILY Patient Comments: TAKE 1 TABLET BY MOUTH DAILY clonidine HCl 0.1 mg Tablet 0.1 mg PO BID donepezil 10 mg Tablet 10 mg PO QHS hydroxyzine HCl 50 mg Tablet 50 mg PO TID PRN (Reason: Anxiety) lisinopril 10 mg Tablet 10 mg PO DAILY aspirin 81 mg Tablet 81 mg PO DAILY mirtazapine 15 mg Tablet 15 mg PO QHS buspirone 15 mg Tablet 30 mg PO BID memantine 5 mg Tablet 5 mg PO BID melatonin 10 mg Capsule 9 mg PO QHS sertraline 150 mg Capsule 150 mg PO DAILY quetiapine [Seroquel] 25 mg Tablet 25 mg PO DAILY acetaminophen 325 mg Tablet 325 mg PO Q6H PRN (Reason: Pain) Referrals / Follow Up: Selene King MD [[facility]] - Selene King MD [Primary Care Provider] - (1) Chest pain Qualifiers: Chest pain type: chest pain due to myocardial ischemia Ischemic chest pain type: unspecified angina pectoris type Qualified Code(s): I25.9 - Chronic ischemic heart disease, unspecified
--- NOTE | 2022-10-08 13:53 | PCM.DC.SUM ---
Providers Date of Admission: 10/07/22 Date of Discharge: 10/08/22 Primary Care Physician: Dr. Selene King MD Consultations 10/07/22 08:21 Consult: Cardiology Routine Consulting Provider: Rudolph James Reason for Consult: chest pain EMERGENT Consult: No MD Notified: Yes Date Notified: 10/07/22 Time Notified: 08:21 Method of Notification: Verbal Reason For Visit: CHEST PAIN Diagnosis Discharge Diagnosis (1) Chest pain: Status: Acute Code(s): R07.9 - Chest pain, unspecified Qualifiers: Chest pain type: chest pain due to myocardial ischemia Ischemic chest pain type: unspecified angina pectoris type Qualified Code(s): I25.9 - Chronic ischemic heart disease, unspecified Medications at Discharge Home Medications atorvastatin 20 mg tablet 20 mg PO DAILY 11/08/21 aspirin 81 mg tablet 81 mg PO DAILY 11/30/21 buspirone 15 mg tablet 30 mg PO BID 11/30/21 clonidine HCl 0.1 mg tablet 0.1 mg PO BID 11/30/21 donepezil 10 mg tablet 10 mg PO QHS 11/30/21 hydroxyzine HCl 50 mg tablet 50 mg PO TID PRN Anxiety 11/30/21 lisinopril 10 mg tablet 10 mg PO DAILY 11/30/21 melatonin 10 mg capsule 9 mg PO QHS 11/30/21 memantine 5 mg tablet 5 mg PO BID 11/30/21 mirtazapine 15 mg tablet 15 mg PO QHS 11/30/21 sertraline 150 mg capsule 150 mg PO DAILY 11/30/21 acetaminophen 325 mg tablet 325 mg PO Q6H PRN Pain 01/15/22 quetiapine 25 mg tablet (Seroquel) 25 mg PO DAILY 01/15/22 Hospital Course Procedures 2-D Echocardiogram and Stress test Summary of Care Provided Minutes Spent on Discharge: 31 Hospital Course: Mrs. Denise is a 76-year-old female who is a resident at [place] who presented to the emergency department at [facility] on 10/07/2022 with chest pain. It started the evening prior to admission after following food intake of several packages of cookies. She reported the pain is aching and pressure-like in sensation in the midsternal region with no radiation. She indicated she had associated diaphoresis and nausea with 1 bout of emesis. Her symptoms persisted so she was brought to the emergency department. Vital signs on presentation were overall unremarkable. Initial labs were unremarkable. Her initial troponin was 36 with a repeat delta of 57. EKG showed normal sinus rhythm without any evidence of acute ischemia and her chest x-ray was unremarkable. With her troponin rise from 36-57 request for admission was made and she was given a full-strength aspirin. Her troponin did trend up further and peaked at 111. Cardiology was consulted and given the atypical nature of her chest pain recommended stress test and echocardiogram. Echocardiogram demonstrated an EF of 60% with stage I diastolic dysfunction and no wall motion abnormality. Stress test was unremarkable for any inducible ischemia. Cardiology felt she could go home on continued medical therapy to clued aspirin, atorvastatin and, and ongoing med is for blood pressure control. Chest pain had resolved by the time I evaluated her on 10/08/2022 and had been resolved since the day prior. She is able to be discharged back to [place] in stable condition on 10/08/2022. We will have her follow-up with her primary care physician within the next month and cardiology is to evaluate her as an outpatient in the next month. Discharge diagnoses: Chest pain-resolved Mild troponin elevation Hyperlipidemia Hypertension Anxiety Dementia of unknown type Depression Physical Exam Const alert, no apparent distress, average body habitus and well nourished Constitutional Narrative: Elderly white female, sitting up in bed, appears comfortable and nontoxic, mild confusion however this is baseline per family, appears comfortable and nontoxic General Appearance: cooperative, comfortable, well kempt and well developed Orientation / Consciousness: awake, oriented to person and oriented to place HEENT normocephalic and head/scalp atraumatic HEENT Narrative: Mild hearing loss, Mallampati 2-3, no thrush Resp normal respiratory effort, no retractions, no use of accessory muscles and clear to auscultation bilaterally Auscultation: Negative for rales, rhonchi or wheezes Cardio regular rate, regular rhythm, S1 normal heart sound, S2 normal heart sound, no murmurs, no rub, no gallops and no clicks GI normal to inspection, nondistended, normoactive bowel sounds, soft to palpation and non-tender Extremity no clubbing, cyanosis or edema Extremity Narrative: Pulses are 2+ Neuro CN's II-XII intact bilaterally, moves all extremities and no focal motor deficits Speech: speech normal Psych affect normal Mood & Affect: anxious Weight / BMI Weight Weight: 51 kg Body Mass Index (BMI) 19.9 ABG / Lab / Microbiology Data 10/08/22 05:19 10/08/22 05:19 Laboratory: Laboratory Results - last 24 hr 10/08/22 05:19: WBC 7.3, RBC 3.81 L, Hgb 12.4, Hct 37.0, MCV 97.1, MCH 32.5 H, MCHC 33.5, RDW Std Deviation 45.1 H, RDW Coeff of Niels 12.7, Plt Count 254, MPV 8.8, Immature Gran % (Auto) 0.400, Neut % (Auto) 60.4, Lymph % (Auto) 29.6, [place] % (Auto) 7.9, Eos % (Auto) 1.1, Baso % (Auto) 0.6, Absolute Neuts (auto) 4.4, Absolute Lymphs (auto) 2.15, Nucleated RBC % 0, Sodium 139, Potassium 4.2, Chloride 108 H, Carbon Dioxide 26.0, Anion Gap 5, BUN 19 H, Creatinine 1.14 H, Estim Creat Clear Calc 33.27, Est GFR (MDRD) Af Amer 59 L, Est GFR (MDRD) Non-Af 49 L, BUN/Creatinine Ratio 16.7, Glucose 85, Calcium 9.2, Total Bilirubin 0.50, AST 18, ALT 17, Alkaline Phosphatase 58, Total Protein 6.9, Albumin 3.5, Globulin 3.4, Albumin/Globulin Ratio 1.0, Triglycerides 70, Cholesterol 167, LDL Cholesterol 105, VLDL Cholesterol 14, HDL Cholesterol 48 Radiography Diagnostic Testing: Radiology Impression Echocardiogram 10/07/22 09:33 Interpretation Summary Normal LV size. Left ventricular systolic function is normal. The estimated ejection fraction is 60 %. Stage 1 diastolic dysfunction. Ordering Physician: Rudolph James Performed By: Chi Fitch RCS Chest CTA 10/07/22 13:07 IMPRESSION: Normal CTA chest examination, without a demonstrated pulmonary embolism or arterial dissection. Electronically Signed: Chirag Saravia MD at 16:18 EDT , Meaningful Use Info Meaningful Use Diagnoses (Choose all that apply): None applicable Discharge Plan Admission Admit Date/Time: 10/07/22 04:19 Primary Reason for Your Visit: Chest pain Attending Provider: Shama Alvarado Primary Care Provider: Selene King Consulting Providers: Nisha Graham; Rudolph James; Rustam Colón Discharge Orders/Prescriptions Prescriptions: Continued atorvastatin 20 mg tablet 20 mg PO DAILY Patient Comments: TAKE 1 TABLET BY MOUTH DAILY clonidine HCl 0.1 mg Tablet 0.1 mg PO BID donepezil 10 mg Tablet 10 mg PO QHS hydroxyzine HCl 50 mg Tablet 50 mg PO TID PRN (Reason: Anxiety) lisinopril 10 mg Tablet 10 mg PO DAILY aspirin 81 mg Tablet 81 mg PO DAILY mirtazapine 15 mg Tablet 15 mg PO QHS buspirone 15 mg Tablet 30 mg PO BID memantine 5 mg Tablet 5 mg PO BID melatonin 10 mg Capsule 9 mg PO QHS sertraline 150 mg Capsule 150 mg PO DAILY quetiapine [Seroquel] 25 mg Tablet 25 mg PO DAILY acetaminophen 325 mg Tablet 325 mg PO Q6H PRN (Reason: Pain) Referrals / Follow Up: Selene King MD [Primary Care Provider] - Within 1 Month Selene King MD [[facility]] - Rudolph James MD [Med Staff - Active Staff] - Within 1 Month Disposition Disposition (needs filled in before D/C Order can be placed): NonSkilled NH/Intermed Care Charges/Coding Visit Charges Inpatient E&M: 35730 SNF Disch
[2022-10-08 13:58] VITALS: BP 131/61; PULSE 72; RESP 14; TEMP 36.6; O2SAT 97
[2022-10-08 14:23] VITALS: BMI 19.9
--- NOTE | 2022-10-08 14:40 | CASEMGMT ---
Discharge Planning Discharge orders, signed med list, and transport time sent to [facility] via [facility]. Patient will be transported via by [facility] at 3p. Nursing, SW, patient, and her daughter were all notified. Jenny Iniguez, Discharge Planning Asst.
--- NOTE | 2022-10-08 14:43 | CHAPLAIN ---
Type of Pastoral Visit _x__ Initial Visit ___ Follow-up Visit ___ On-call Visit ___ General Patient Visit ___ Spiritual Assessment ___ Family Conference ___ Bereavement ___ Rapid Response ___ Code Blue ___ Other (describe below) Pastoral Care Referral From _x__ Patient ___ Family ___ Nurse ___ Physician ___ Conservation Officer ___ Desktop Publishing Specialist ___ Other (describe below) Sacrament/Intervention _x__ Active listening ___ Anointing ___ Mandaen ___ Bereavement ___ Communion ___ Xochilt exploration ___ _x__ Life review _x__ Prayer ___ Reconciliation ___ Sacrament of Sick _x__ Supportive presence ___ Wedding ___ Other (describe below) Pastoral Comments patient describes how she felt and reason for admission; pt admit to being anxious about situation and overall just an anxious person; pt given calm presence and assurance; pt talks about life at [place] where she wants to return; pt open to prayer and presence of histology aide; pt is baptized Jain but is not connected to a xochilt community in adulthood
--- NOTE | 2022-10-08 14:48 | CASEMGMT ---
SW spoke with patient and her daughter about SDOH and both denied any issues with transportation etc. Rhianna Dunlap LABOR RELATIONS WORKER [place]
--- NOTE | 2022-10-08 16:06 | STRESSREP ---
Stress Test Report Pharmacologic myocardial perfusion stress test. 76-year-old lady with a history of chest pain Resting EKG demonstrates sinus rhythm with a rate of 61 bpm. Resting blood pressure is 170/80 mmHg. 0.4 mg of regadenoson was infused per usual protocol followed by rapid intravenous saline flush injection. Continuous EKG monitoring was performed. The maximum heart rate was 101 bpm which was 70% of max impacted heart rate the maximum workload was 1 metabolic equivalent. At rest there were no ST or T wave changes noted to suggest ischemia and at peak infusion nonspecific ST changes were noted which did not meet the criteria for ischemia. No clinical angina is noted. The final blood pressure was 160/78 mmHg. Myocardial perfusion protocol. 12.0 mCi of technetium 99m sestamibi was injected at rest. 0.4 mg of regadenoson was infused per usual protocol. At peak infusion 33.9 mCi of technetium 99m sestamibi was injected stress images were obtained stress and rest images were reconstructed and compared in the short axis vertical long and horizontal long axis. Gated images were also obtained. Perfusion SPECT analysis: Review of the stress images demonstrate normal uptake of tracer noted in all areas of the myocardium. The resting images similar demonstrated normal uptake of tracer noted in all areas of the myocardium. No areas of reversibility are noted to suggest ischemia and no previous infarct is noted. Gated SPECT analysis: The gated ejection fraction is 87%. Conclusion: Normal pharmacologic myocardial perfusion stress test. Preserved ejection fraction.
== END 2022-10-08 13:58 | disposition intermediate care facility (04) ==
LOC: ED 04:00 → PCU 06:58
PROVIDERS: Admitting Provider Family Medicine; Emergency Provider Emergency Medicine; PCP Internal Medicine; Visit Provider Internal Medicine
DX: I25.9 Chronic ischemic heart disease, unspecified (principal); F03.90 Unspecified dementia, unspecified severity, without behavioral disturbance, psychotic disturbance, mood disturbance, and anxiety; R11.2 Nausea with vomiting, unspecified; F41.9 Anxiety disorder, unspecified; I12.9 Hypertensive chronic kidney disease with stage 1 through stage 4 chronic kidney disease, or unspecified chronic kidney disease; N18.2 Chronic kidney disease, stage 2 (mild); E78.00 Pure hypercholesterolemia, unspecified; F32.A Depression, unspecified; Z79.899 Other long term (current) drug therapy; Z79.82 Long term (current) use of aspirin; K21.9 Gastro-esophageal reflux disease without esophagitis; E87.6 Hypokalemia; R73.9 Hyperglycemia, unspecified
CPT/HCPCS: 36415; 71045; 71275; 78452; 80048; 80053; 80061; 83036; 83735; 84484; 85025; 93005; 93017; 93306; 96360; 96361; 96372; 97802; 99221; 99285; A9500; J7030; Q9967; A4216; G0378; J2785